=== PATIENT | male | born 1955 | race Caucasian/White ===

== ENCOUNTER → 2016-10-01 | Outpatient (CLI) | payer BC ==
[~2016-10-01] MED LIST: ALBUAER19 INH; ASPCH81X PO; COEN100C7 PO; CYCL10TA6 PO; DICL-201 PO; FLUV100T2 PO; NAPR1TAB9 PO; VNTHFA/IN INH
[2016-10-01 12:27] LABS: BASO % 0.2 %; BASO ABS # 0.01 K/uL (0-0.2); COMPLETE YES; HEMATOCRIT 44.9 % (42-52); LYMPH % 35.3 %; LYMPH ABS # 2.11 K/uL (1.2-3.4); MEAN CELL VOLUME 91.3 fL (80-100); MEAN CORPUSCULAR HEMOGLOBIN 31.3 pg (25-34); MEAN CORPUSCULAR HGB CONC 34.3 g/dl (32-36); MEAN PLATELET VOLUME 10.9 fL (7.4-10.4); NEUT % 53.5 %; PLATELET COUNT 225 K/uL (130-400); RED BLOOD COUNT 4.92 M/uL (4.7-6.1); WHITE BLOOD COUNT 5.97 K/uL (4.8-10.8)
[2016-10-01 13:06] LABS: ALT/SGPT 18 U/L (12-78); AST/SGOT 16 U/L (15-37); BLOOD UREA NITROGEN 15 mg/dl (7-18); BUN/CREATININE RATIO 14.8 (10-20); CALCIUM 8.7 mg/dl (8.5-10.1); CARBON DIOXIDE 29 mmol/L (21-32); CHLORIDE 107 mmol/L (98-107); CREATININE 0.99 mg/dl (0.60-1.40); GLUCOSE 106 mg/dl (70-99); POTASSIUM 4.1 mmol/L (3.5-5.1); SODIUM 143 mmol/L (136-145); TRIGLYCERIDES 177 mg/dl (0-150); VERY LOW DENSITY LIPOPROT CALC 35 mg/dl
[2016-10-01 13:11] LABS: ALB/GLOB RATIO 1.4 (0.9-2); ALKALINE PHOSPHATASE 91 U/L (45-117); CHOLESTEROL 254 mg/dl (0-200); CHOLESTEROL/HDL RATIO 5.6; HDL CHOLESTEROL 45 mg/dl; LDL CHOLESTEROL CALCULATED 174 mg/dl; PROSTATE SPECIFIC ANTIGEN 0.973 ng/ml (0.000-4.000)
[2016-10-01 13:34] LABS: ESTIMATED AVERAGE GLUCOSE 126 mg/dl; HA1C FLAG Normal (Normal)
--- NOTE | 2016-10-06 10:12 | CODING QUERY MEDICAL NECESSITY ---
SUPPORTING DIAGNOSIS NEEDED Dr. Sharma, A supporting diagnosis is required for the test/procedure performed on this patient in order for us to be reimbursed by the patient's insurance. Please provide a supporting diagnosis for the following test/procedure listed below next to the test name along with your signature. *If there is no additional diagnosis for this patient that would support the following test/procedure please document that below next to the test/procedure. Test(s)/Procedure(s) that require a supporting diagnosis: * [id number] GLYCATED HEMOGLOBIN DIAGNOSIS: * [id number] PSA DIAGNOSIS: DATE OF SERVICE: 10/01/16 Provider Signature: Date: Thank you Agustin Ramos Health Information Management Once completed, please kindly fax back to [phone] For questions please call [phone]
== END | disposition home or self-care (01) ==
LOC: C.LABPBG 09:39
PROVIDERS: ATTEND Internal Medicine
DX: F42.9 Obsessive-compulsive disorder, unspecified (principal); R73.03 Prediabetes; Z12.5 Encounter for screening for malignant neoplasm of prostate

== ENCOUNTER → 2017-01-07 | Day surgery (SDC) | payer BC ==
[2016-12-08 12:40] VITALS: Ht 175.3 cm; Wt 93.2 kg
[~2017-01-07] VITALS: Ht 175.3 cm; Wt 93.2 kg
[~2017-01-07] MED LIST changes: -ASPCH81X PO; -COEN100C7 PO; +IOPAMIDOL INJ 61% 15 ML VIAL ONE; +LIDOCAINE HCL 1% MPF 5 ML VIAL ONE; +SODIUM CHLORIDE 0.9% INJ 10 ML VIAL ONE; -VNTHFA/IN INH
[2017-01-07 13:58] VITALS: TEMP 36.5
--- NOTE | 2017-01-07 14:53 | History & Physical Bridge - [place] ---
H&P Re-Evaluation Bridge Note: I have examined the patient, reviewed the History & Physical and in the interval since the performance of the History & Physical I have noted the following changes of clinical significance: No changes noted
--- NOTE | 2017-01-07 15:15 | Discharge Instructions ---
Discharge Instructions Date of Service Jan 07, 2017. Visit Reason for Visit: Lumbosacral Disc Displacement Discharge Discharge Diagnosis / Problem: leg pain Discharge Goals Goal(s): Decrease discomfort, Improve function Medications Stopped Medications Name(s): voltaren and aleve. last dose votaren thursday. last dose aleve thursday Activity Recommendations Activity Limitations: resume your previous activity Anesthesia . Post Anesthesia Instructions: If you have had General Anesthesia or IV Sedation: * Do not drive today. * Resume driving when surgeon permits. * Do not make important decisions or sign legal documents today. * Call surgeon for: 1. Temperature elevations greater than 101 degrees F. 2. Uncontrollable pain. 3. Excessive bleeding. 4. Persistent nausea and vomiting. 5. Medication intolerance (nausea, vomiting or rash). * For nausea and vomiting use only clear liquids such as: tea, soda, bouillon until nausea subsides, then gradually increase diet as tolerated. * If you have any concerns or questions, call your surgeon's office. If physician is unavailable and it is an emergency, call 911 or go to the nearest emergency room. . Diet Recommendations Recommended Home Diet: resume previous diet Procedures Procedures Performed: Lumbar Epidural Steroid Injection Pending Studies Studies pending at discharge: no Medical Emergencies . Who to Call and When: Medical Emergencies: If at any time you feel your situation is an emergency, please call 911 immediately. . Non-Emergent Contact Non-Emergency issues call your: Specialist . . "Provider Documentation" section prepared by Darinel Sal. .
[2017-01-07 15:19] VITALS: BP 116/74; PULSE 67; O2SAT 99
--- NOTE | 2017-01-07 16:10 | [facility] Operative Report ---
Operative Report Date of Service Jan 07, 2017. Operative Report DICTATED BY: Darinel Sal M.D. DATE OF SURGERY: 01/07/17. DATE OF OPERATION: 01/07/2017 PREOPERATIVE DIAGNOSIS: L5-S1 herniated nucleus pulposus with bilateral lower extremity radiculopathy. POSTOPERATIVE DIAGNOSIS: Same. PROCEDURE: Right paramedian L5-S1 intralaminar epidural steroid injection under fluoroscopic guidance. SURGEON: Dr. Darinel Sal. INDICATIONS: The patient is a 61-year-old white male who has received injections in the past with good effectiveness. His injection has worn off that was done a number of months ago and radicular pain is coming back despite the medications he is on. He presents today for an epidural to provide him with relief. PHYSICAL EXAMINATION: GENERAL: Pleasant male seated comfortably in no apparent distress. MUSCULOSKELETAL EXAMINATION: Lumbar paraspinal muscles were palpated. They were nontender. He had no sensitivity of the sciatic notch. He had normal lower extremity strength. Negative seated straight leg raises and had no difficulty with hip adduction. CONSENT: Verbal and written consent was obtained from the patient. Risks and benefits were reviewed. Risks include but are not limited to epidural abscess, epidural hematoma, allergic reaction, dural puncture. The patient wishes to proceed. PROCEDURE: The patient was taken back to the special procedures room of the [facility] where he was maintained in a prone position. Backside was cleansed with Betadine x3 and a dry sterile dressing was applied. Fluoroscope was used to identify the L5-S1 intralaminar space and overlying skin on the right side was anesthetized with 4 mL of lidocaine 1% with a 25 gauge 1.5-inch needle. A 22-gauge 3-1/2 inch Tuohy needle was then directed down towards the intralaminar space. It was advanced under lateral fluoroscopic guidance. Loss of resistance was noted at a depth of 6 cm. Isovue-300 contrast 1 mL was injected in which demonstrated epidural uptake pattern which was confirmed with both AP and lateral views. He then underwent injection after negative aspiration of 40 mg of Depo-Medrol and 4 mL of preservative free sodium chloride. Injection was well tolerated. DISPOSITION: 1. The patient is taken out into the discharge recovery area where he will be discharged home once discharge criteria have been met. 2. Follow up in the [facility] office in 2-4 weeks. I attest to the content of the Intraoperative Record and any orders documented therein. Any exceptions are noted below. D: T: <Electronically signed by Darinel Sal M.D.> S: 01/07/2017 ES Darinel Sal M.D. The status of this report is Signed. Draft = Not yet reviewed or approved by Medical Physician. Signed = Reviewed and approved by Medical Physician. I attest to the content of the Intraoperative Record and any orders documented therein. Any exceptions are noted below.
== END | disposition home or self-care (01) ==
LOC: X.SURG 13:51
PROVIDERS: ATTEND Physical Medicine & Rehabilitation
DX: M51.27 Other intervertebral disc displacement, lumbosacral region (principal); M54.16 Radiculopathy, lumbar region

== ENCOUNTER → 2017-02-25 | Outpatient (CLI) | payer BC ==
[~2017-02-25] MED LIST changes: -IOPAMIDOL INJ 61% 15 ML VIAL ONE; -LIDOCAINE HCL 1% MPF 5 ML VIAL ONE; -SODIUM CHLORIDE 0.9% INJ 10 ML VIAL ONE
--- NOTE | 2017-02-25 13:00 | DIAGNOSTIC IMAGING REPORT ---
RIGHT LOWER EXTREMITY VENOUS DOPPLER HISTORY: M79.606 Acute leg painI80.9 Phlebitis, superficial RT lower ext Right COMPARISON STUDY: None. FINDINGS: There is normal compressibility, flow, and augmentation within the right lower extremity deep venous system. The patient's area of pain within the right medial calf appears to correspond to a patent superficial vessel. IMPRESSION: No DVT within the right lower extremity Electronically signed by: Jaskaran Gusman M.D. 02/25/2017 12:59 PM Dictated Date/Time: 02/25/2017 12:58 PM
== END | disposition home or self-care (01) ==
LOC: C.ULTRBC 12:18
PROVIDERS: ATTEND Physician Assistant Medical
DX: I80.9 Phlebitis and thrombophlebitis of unspecified site (principal); M79.604 Pain in right leg

== ENCOUNTER → 2017-04-06 | Outpatient (CLI) | payer BC ==
[2017-04-06 11:59] LABS: CHOLESTEROL/HDL RATIO 5.4
[2017-04-06 12:33] LABS: ESTIMATED AVERAGE GLUCOSE 120 mg/dl; HA1C FLAG Normal (Normal)
== END | disposition home or self-care (01) ==
LOC: C.LABPBG 09:28
PROVIDERS: ATTEND Internal Medicine
DX: F42.9 Obsessive-compulsive disorder, unspecified (principal); R73.03 Prediabetes; E78.5 Hyperlipidemia, unspecified

== ENCOUNTER → 2017-05-13 | Day surgery (SDC) | payer BC ==
[2017-04-17 14:01] VITALS: Ht 170.2 cm; Wt 88.6 kg
[~2017-05-13] VITALS: Ht 170.2 cm; Wt 88.6 kg
[~2017-05-13] MED LIST changes: -ALBUAER19 INH; +ASPCH81X PO; +COEN100C7 PO; +IOPAMIDOL 15 ML IV ONE; +LIDOCAINE HCL 1% MPF 5 ML VIAL ONE; +SODIUM CHLORIDE 0.9% INJ 10 ML VIAL ONE; +VNTHFA/IN INH
[2017-05-13 15:29] VITALS: TEMP 37.5
--- NOTE | 2017-05-13 15:36 | Discharge Instructions ---
Discharge Instructions Date of Service May 13, 2017. Visit Reason for Visit: Lumbosacral Disc Displacement Discharge Discharge Diagnosis / Problem: left leg pain Discharge Goals Goal(s): Decrease discomfort, Improve function Medications Stopped Medications Name(s): Per pt stopped taking asa, diclofenac, luvox, and meloxicam as instructed on thursday. Activity Recommendations Activity Limitations: resume your previous activity Anesthesia . Post Anesthesia Instructions: If you have had General Anesthesia or IV Sedation: * Do not drive today. * Resume driving when surgeon permits. * Do not make important decisions or sign legal documents today. * Call surgeon for: 1. Temperature elevations greater than 101 degrees F. 2. Uncontrollable pain. 3. Excessive bleeding. 4. Persistent nausea and vomiting. 5. Medication intolerance (nausea, vomiting or rash). * For nausea and vomiting use only clear liquids such as: tea, soda, bouillon until nausea subsides, then gradually increase diet as tolerated. * If you have any concerns or questions, call your surgeon's office. If physician is unavailable and it is an emergency, call 911 or go to the nearest emergency room. . Diet Recommendations Recommended Home Diet: resume previous diet Procedures Procedures Performed: Lumbar Epidural Steroid Injection Pending Studies Studies pending at discharge: no Medical Emergencies . Who to Call and When: Medical Emergencies: If at any time you feel your situation is an emergency, please call 911 immediately. . Non-Emergent Contact Non-Emergency issues call your: Specialist . . "Provider Documentation" section prepared by Darinel Sal. .
[2017-05-13 15:39] VITALS: BP 124/79; PULSE 72; O2SAT 99
--- NOTE | 2017-05-13 15:48 | OPERATIVE REPORT ---
DATE OF OPERATION: 05/13/2017 PREOPERATIVE DIAGNOSIS: L5-S1 herniated nucleus pulposus with recurrent left lower extremity radiculopathy. POSTOPERATIVE DIAGNOSIS: Same. PROCEDURE: Left paramedian L5-S1 intralaminar epidural steroid injection under fluoroscopic guidance. SURGEON: Dr. Darinel Sal. INDICATIONS: The patient is a 62-year-old white male who has had good results from an epidural injection, last one in December. The effectiveness is wearing off and is more uncomfortable for him. He presents today for an epidural injection to provide him with relief of left lower extremity radiculopathy. PHYSICAL EXAMINATION: Pleasant male lying comfortably. He has mild sensitivity in his sciatic notch, worse with flexion. He has normal motor and sensory exam. He has a positive straight leg raise on the left lower extremity. CONSENT: Verbal and written consent was obtained from the patient. Risks and benefits were reviewed. Risks include but are not limited to abscess and allergic reaction. The patient wishes to proceed. PROCEDURE: The patient was taken back to special procedures room of the [facility] [address] where he was maintained in a prone position. Backside was cleansed with Betadine x3 and a dry sterile dressing was applied. Fluoroscope was used to identify the L5-S1 intralaminar space. Overlying skin on the left side was anesthetized with 4 mL of lidocaine 1% with a 25 gauge 1.5-inch needle. He then had a 22 gauge 3-1/2 inch Tuohy needle placed and was advanced under lateral fluoroscopic guidance. Loss of resistance was noted at a depth of 6.5 cm. Isovue-300 contrast 1 mL was injected in which demonstrated epidural uptake pattern. He then underwent injection after negative aspiration of 40 mg of Depo-Medrol and 4 mL of preservative free sodium chloride. Injection was well tolerated. DISPOSITION: 1. The patient is taken out into the discharge recovery area where he will be discharged home once discharge criteria have been met. 2. Follow up in the [facility] office in 2-4 weeks. I attest to the content of the Intraoperative Record and any orders documented therein. Any exception s are noted below.
== END | disposition home or self-care (01) ==
LOC: X.SURG 13:52
PROVIDERS: ATTEND Physical Medicine & Rehabilitation
DX: M51.17 Intervertebral disc disorders with radiculopathy, lumbosacral region (principal)

== ENCOUNTER 2022-02-03 02:10 | Inpatient (IN) ==
[2022-02-03] MEDS ORDERED: ASPIRIN CHEW 324 MG PO STA (02:35)
[2022-02-03] MEDS ORDERED: SODIUM CHLORIDE 0.9% 500 ML IV STA (02:35)
[2022-02-03] MEDS ORDERED: NITROGLYCERIN 2% OINTMENT 30GM TUBE EXT STA (02:35)
--- NOTE | 2022-02-03 02:39 | Emergency Department Note ---
History of Present Illness General Chief complaint: Chest Pain Stated complaint: CHEST PAIN,PAIN LFT ARM BEHIND,JAW PAIN Time Seen by Provider: 02/03/22 02:23 History of Present Illness Maximum Pain Intensity: 10 This is a 66-year-old male presenting to the emergency department for evaluation of left arm pain, left shoulder pain, left side chest pain, and radiation of pain into his left side jaw. The patient states the pain began less than 1 hour ago (about 1:30 am) while he was asleep in bed. He does have a history of coronary artery disease and dyslipidemia. The patient describes the pain in his chest as heavy, with the pain in his arm as sharp. He does not have any recent injuries or trauma. He has not taken anything [id number] for symptoms. He rates his pain a 10/10. There is a strong family history of cardiac disease. Home Medications Medication Instructions Recorded Confirmed Type diclofenac sodium 75 mg 75 mg PO BID 04/26/19 02/03/22 History tablet,delayed release acetaminophen 500 mg tablet 1,000 mg PO Q6H PRN Pain 01/25/21 02/03/22 History (Tylenol Extra Strength) fluvoxamine 100 mg tablet 100 mg PO BID #180 tabs 10/16/21 02/03/22 Rx prednisone 1 mg tablet 4 mg PO DAILY 02/03/22 02/03/22 History Allergies Allergy/AdvReac Type Severity Reaction Status Date / Time No Known Allergies Allergy Verified 02/03/22 02:38 Past Med/Surg History Medical History Anxiety Back pain, lumbosacral Carpal tunnel syndrome Chronic pain syndrome Claustrophobia Fibromyalgia History of COVID-19 07/01/20 [facility]; cough, sob, fever, fatigue, chills, sore throat, loss of taste/smell; reports all symptoms resolved aside from loss of taste/smell History of kidney stones Hyperlipidemia HX Left lumbar radiculopathy Lumbar disc prolapse with compression radiculopathy Lumbar spinal stenosis OCD (obsessive compulsive disorder) Panic anxiety syndrome Pre-diabetes Rheumatoid arthritis Surgical History History of colonoscopy History of surgical removal of ganglion cyst Hx of vasectomy S/P epidural steroid injection 01/2021 Family History Uncle Myocardial infarction Mother Coronary heart disease Other No family history of adverse response to anesthesia Denies family history of Ovarian cancer Prostate cancer Breast cancer Lung cancer Colorectal cancer Social History Smoking Status: Never smoker Second Hand Exposure: No; Do You Dip or Chew Tobacco: No; Tobacco Cessation Education Requested by Patient: No Hx Alcohol Use: Yes Alcohol type: wine Hx Substance Use: No Preferred Language: Romanian Communication Ability: Effective Visual Impairment: No Limitations Hearing Ability: Normal Records Associate Required: No Beliefs That Will Affect Care: None marital status: Current Living Situation: Spouse current occupational status: retired Other Information That Helps Us Care for You: No Feels Safe at Home: Yes Safety Concerns: Feels Safe At This Time Childhood Exposure to Second-Hand Smoke: No Diet Comment: regular caffeine: Yes during the past year weight has: remained stable Dental Care, Regularly: Yes Physical Activity Frequency: Daily Physical Activity Frequency Comment: States active at home Seatbelt Use: always Sunscreen Use: Yes Assistive Devices: Glasses Review of Systems A total of 10 systems reviewed and were otherwise negative Physical Exam Vital Signs Vital Signs - 24 hr 02/03/22 02:13 02/03/22 03:00 02/03/22 03:00 Temperature 36 C L Temperature Source Temporal Artery Scan Pulse Rate 69 Pulse Rate [Apical] 72 Pulse Rate [Finger] Pulse Rhythm Respiratory Rate 20 14 Respiratory Effort / Characteristics Non-Labored Spontaneous Non-Labored Spontaneous Respiratory Depth Normal Blood Pressure 148/90 H Blood Pressure [Left Arm] 145/102 H Blood Pressure Mean 109 Blood Pressure Mean [Left Arm] 116 Blood Pressure Position [Left Arm] Pulse Oximetry 96 95 95 Oxygen Delivery Method Room Air Room Air Room Air Sepsis Recent Fever Within 48 Hours No Sepsis New/Unexplained Change in Mental Status N/A Sepsis Action Taken by Nursing No Action Required 02/03/22 03:00 02/03/22 03:00 02/03/22 04:00 Temperature Temperature Source Pulse Rate 71 Pulse Rate [Apical] Pulse Rate [Finger] 76 Pulse Rhythm Regular Respiratory Rate 20 Respiratory Effort / Characteristics Respiratory Depth Blood Pressure 133/86 Blood Pressure [Left Arm] 145/102 H Blood Pressure Mean 101 Blood Pressure Mean [Left Arm] 116 Blood Pressure Position [Left Arm] Sitting Pulse Oximetry 95 95 95 Oxygen Delivery Method Room Air Room Air Sepsis Recent Fever Within 48 Hours Sepsis New/Unexplained Change in Mental Status Sepsis Action Taken by Nursing VITALS: Vitals are noted on the nurse's note and reviewed by myself. Vital signs stable. GENERAL: Well-developed, well-nourished, white male, who is moderately uncomfortable appearing. Patient is cooperative with the examination. HEAD: Normocephalic atraumatic. NECK: Supple without nuchal rigidity. No lymphadenopathy. No thyromegaly. Cervical spine is nontender. HEART: Regular rate and rhythm without murmurs gallops or rubs. LUNGS: Clear to auscultation bilaterally without wheezes, rales or rhonchi. No retractions or accessory muscle use. ABDOMEN: Positive normal bowel sounds x 4. Soft, nontender, without masses or organomegaly. No guarding or rebound tenderness. MUSCULOSKELETAL: No muscle atrophy, erythema, or edema noted. Full range of motion in all extremities. Course Administered Medications Heparin Sodium/Dextrose (Heparin Sodium/Dextrose) 25,000 units in 500 mls @ 28 mls/hr IV .[id number] [facility]; Protocol Stop: 03/05/22 04:14 Last Admin: 02/03/22 04:17 Dose: 1,400 units/hr, 28 mls/hr Documented By: ENDER Co-signed By: ISAI Discontinued Medications Aspirin (Aspirin Chew 324 Mg) 324 mg PO NOW STA Stop: 02/03/22 02:36 Last Admin: 02/03/22 02:42 Dose: 324 mg Documented By: ISAI Heparin Sodium (Porcine) (Heparin Sod (Porcine) 1000 Unit/Ml) 6,000 units IV NOW ONE Stop: 02/03/22 04:08 Last Admin: 02/03/22 04:16 Dose: 6,000 units Documented By: ENDER Co-signed By: ISAI Sodium Chloride (Nss) 500 mls @ 999 mls/hr IV .Q31M STA Stop: 02/03/22 03:05 Last Infusion: 02/03/22 03:16 Dose: 0 mls/hr Documented By: Admin: 02/03/22 02:46 Dose: 999 mls/hr Documented By: ISAI Metoprolol Tartrate (Metoprolol Tartrate 25 Mg Tab) 25 mg PO NOW STA Stop: 02/03/22 03:56 Last Admin: 02/03/22 04:15 Dose: 25 mg Documented By: ENDER Morphine Sulfate (Morphine Sulfate 4 Mg/Ml 1 Ml Carp\Vial) 4 mg IV Q30M PRN PRN Reason: Pain Stop: 02/17/22 03:02 Last Admin: 02/03/22 03:09 Dose: 4 mg Documented By: ENDER Nitroglycerin (Nitroglycerin 2% Ointment 30gm Tube) 1 inch EXT NOW STA Stop: 02/03/22 02:36 Last Admin: 02/03/22 02:42 Dose: 1 inch Documented By: ISAI Nitroglycerin (Nitroglycerin Sl 0.4 Mg/Tab Tab) 0.4 mg SL NOW STA Stop: 02/03/22 04:07 Last Admin: 02/03/22 04:14 Dose: 0.4 mg Documented By: ENDER Ondansetron HCl (Ondansetron Inj 2 Mg/Ml 2 Ml Vial) 4 mg IV NOW STA Stop: 02/03/22 03:13 Last Admin: 02/03/22 03:13 Dose: 4 mg Documented By: ENDER Ondansetron HCl (Ondansetron Inj 2 Mg/Ml 2 Ml Vial) Confirm Administered Dose 4 mg .ROUTE .STK-MED ONE Stop: 02/03/22 03:13 Last Admin: 02/03/22 03:13 Dose: Not Given Documented By: ENDER Medical Decision Making Differential Diagnosis Differential diagnosis includes, but is not limited to: Myocardial infarction, dysrhythmia, pericarditis, pneumothorax, aortic aneurysm/dissection, DVT/PE, anxiety, GERD, PUD, electrolyte imbalance, thyroid disorder, pneumonia, bronchitis, pancreatitis, and others Laboratory Data Result diagrams: 02/03/22 04:55 02/03/22 02:30 Lab Results 02/03/22 02/03/22 02/03/22 Range/Units 02:30 02:30 02:30 WBC 7.64 (4.8-10.8) K/ul RBC 4.64 (4.63-6.08) M/uL Hgb 14.6 (14.0-18.0) g/dl Hct 43.2 (40.1-51.0) % MCV 93.1 (80.0-100.0) fL MCH 31.5 (25.0-34.0) pg MCHC 33.8 (32.0-36.0) g/dL RDW Std Deviation 43.5 (36.4-46.3) fL RDW Coeff of Casey 12.7 (11.5-14.5) % Plt Count 193 (130-400) K/uL MPV 10.2 (9.4-12.4) fL Immature Gran % (Auto) 0.1 % Neut % (Auto) 50.9 % Lymph % (Auto) 37.4 % [place] % (Auto) 9.7 % Eos % (Auto) 1.6 % Baso % (Auto) 0.3 % Neut # (Auto) 3.89 (1.4-6.5) K/uL Lymph # (Auto) 2.86 (1.2-3.4) K/uL [place] # (Auto) 0.74 (0.24-0.82) K/uL Eos # (Auto) 0.12 (0-0.50) K/uL Baso # (Auto) 0.02 (0-0.2) K/uL Immature Gran # (Auto) 0.01 (0.00-0.02) K/uL PT 10.2 (9.0-12.0) Seconds INR 1.0 (0.9-1.1) APTT 24.1 (21.0-31.0) Seconds PTT Ratio 0.9 Sodium 140 (136-145) mmol/L Potassium 3.7 (3.5-5.1) mmol/L Chloride 104 (98-107) mmol/L Carbon Dioxide 27 (21-32) mmol/L Anion Gap 9 (3-11) BUN 21 (6-23) mg/dl Creatinine 0.94 (0.6-1.4) mg/dl Est Cr Clr Drug Dosing 84.8 ml/min Est GFR ( Amer) 97.5 ml/min Est GFR (Non-Af Amer) 84.2 ml/min BUN/Creatinine Ratio 22.3 H (10-20) Glucose 111 H (70-99(Fasting)) mg/dl Calcium 9.2 (8.5-10.1) mg/dl Total Bilirubin 0.4 (0.2-1.0) mg/dl AST 22 (13-39) U/L ALT 10 (7-52) U/L Alkaline Phosphatase 87 (34-104) U/L Troponin I High Sens 525.0 H* (0-20) pg/ml Total Protein 7.0 (6.0-8.3) gm/dl Albumin 4.5 (3.4-5.0) gm/dl Globulin 2.5 (2.5-4.0) gm/dl Albumin/Globulin Ratio 1.8 (0.9-2) Lipase 37 (11-82) U/L SARS-CoV-2, RNA, NAAT (NEGATIVE) 02/03/22 Range/Units 02:48 WBC (4.8-10.8) K/ul RBC (4.63-6.08) M/uL Hgb (14.0-18.0) g/dl Hct (40.1-51.0) % MCV (80.0-100.0) fL MCH (25.0-34.0) pg MCHC (32.0-36.0) g/dL RDW Std Deviation (36.4-46.3) fL RDW Coeff of Casey (11.5-14.5) % Plt Count (130-400) K/uL MPV (9.4-12.4) fL Immature Gran % (Auto) % Neut % (Auto) % Lymph % (Auto) % [place] % (Auto) % Eos % (Auto) % Baso % (Auto) % Neut # (Auto) (1.4-6.5) K/uL Lymph # (Auto) (1.2-3.4) K/uL [place] # (Auto) (0.24-0.82) K/uL Eos # (Auto) (0-0.50) K/uL Baso # (Auto) (0-0.2) K/uL Immature Gran # (Auto) (0.00-0.02) K/uL PT (9.0-12.0) Seconds INR (0.9-1.1) APTT (21.0-31.0) Seconds PTT Ratio Sodium (136-145) mmol/L Potassium (3.5-5.1) mmol/L Chloride (98-107) mmol/L Carbon Dioxide (21-32) mmol/L Anion Gap (3-11) BUN (6-23) mg/dl Creatinine (0.6-1.4) mg/dl Est Cr Clr Drug Dosing ml/min Est GFR ( Amer) ml/min Est GFR (Non-Af Amer) ml/min BUN/Creatinine Ratio (10-20) Glucose (70-99(Fasting)) mg/dl Calcium (8.5-10.1) mg/dl Total Bilirubin (0.2-1.0) mg/dl AST (13-39) U/L ALT (7-52) U/L Alkaline Phosphatase (34-104) U/L Troponin I High Sens (0-20) pg/ml Total Protein (6.0-8.3) gm/dl Albumin (3.4-5.0) gm/dl Globulin (2.5-4.0) gm/dl Albumin/Globulin Ratio (0.9-2) Lipase (11-82) U/L SARS-CoV-2, RNA, NAAT NEGATIVE (NEGATIVE) MDM Narrative Physical exam and history were performed. Nursing notes, EMR, and Medication List were personally reviewed. Patient appears to have chest pain symptoms bringing him to the ER. His description of the pain is quite concerning. EKG was performed and appears to show some ST depression in lead III and aVF compared to his previous EKG of December 2020. IV access was established and labs were obtained. Patient was gently hydrated with normal saline and given IV morphine, IV Zofran, aspirin p.o., as well as Nitropaste. Case was discussed with my attending. An order was placed for continuous cardiac monitoring. The monitor shows a rate of 77 with normal sinus rhythm. The patient's blood work is as above and was reviewed. He does not have a significantly elevated white blood cell count, gross anemia, bandemia, or significant electrolyte imbalance or lipase and transaminases are not diagnostic. COVID is negative. Patient's troponin is greater than 500. On reevaluation the patient did have some improvement of his pain from a 10/10 to a 7/10 with the morphine and other interventions. The patient case was discussed with the on-call hospitalist, Dr. Valerio, who did evaluate the patient here in the ER. Heparin drip will be started by the hospitalist team. Please see their dictation for further patient course, plan, and patient disposition. The chart was completed utilizing Dragon Speech Voice Recognition Software. Grammatical errors, random word insertions, pronoun errors, and incomplete sentences are an occasional consequence of this system due to software limitations, ambient noise, and hardware issues. Any formal questions or conc erns about the content, text, or information contained within the body of this dictation should be directly addressed to the provider for clarification. . Impression & Plan NSTEMI (non-ST elevated myocardial infarction) Discharge Plan Visit Data Chief Complaint: Chest Pain Stated Complaint: CHEST PAIN,PAIN LFT ARM BEHIND,JAW PAIN ED Provider: Annemarie Davies ED Midlevel Provider: Farhat Addison Discharge Problem: NSTEMI (non-ST elevated myocardial infarction) Patient Disposition: Admitted As Inpatient Discharge Instructions Interventions: ED Discharge Assessment Last Done: 02/03/22 05:00
[2022-02-03 02:42] LABS: Basophils # (auto) 0.02 K/uL (0-0.2); Basophils % (auto) 0.3 %; Eosinophils # (auto) 0.12 K/uL (0-0.50); Eosinophils % (auto) 1.6 %; Hematocrit (blood only) 43.2 % (40.1-51.0); Hemoglobin 14.6 g/dl (14.0-18.0); Immature Granulocytes # (auto) 0.01 K/uL (0.00-0.02); Immature Granulocytes % (auto) 0.1 %; Lymphocytes # (auto) 2.86 K/uL (1.2-3.4); Lymphocytes % (auto) 37.4 %; Mean Corpuscular Hemoglobin 31.5 pg (25.0-34.0); Mean Corpuscular Hgb Conc 33.8 g/dL (32.0-36.0); Mean Corpuscular Volume 93.1 fL (80.0-100.0); Mean Platelet Volume 10.2 fL (9.4-12.4); Monocytes # (auto) 0.74 K/uL (0.24-0.82); Monocytes % (auto) 9.7 %; Neutrophils # (auto) 3.89 K/uL (1.4-6.5); Neutrophils % (auto) 50.9 %; Platelet Count 193 K/uL (130-400); RDW Coefficient of Variation 12.7 % (11.5-14.5); RDW Standard Deviation 43.5 fL (36.4-46.3); Red Blood Count 4.64 M/uL (4.63-6.08); White Blood Count 7.64 K/ul (4.8-10.8)
[2022-02-03] MEDS ORDERED: MoRPHine SULFATE 4 MG/ML 1 ML CARP\\VIAL IV PRN (03:03)
[2022-02-03 03:06] LABS: Partial Thromboplastin Ratio 0.9; Partial Thromboplastin Time 24.1 Seconds (21.0-31.0); Prothrombin Time 10.2 Seconds (9.0-12.0)
[2022-02-03] MEDS ORDERED: ONDANSETRON INJ 2 MG/ML 2 ML VIAL IV STA (03:12)
[2022-02-03] MEDS ORDERED: ONDANSETRON INJ 2 MG/ML 2 ML VIAL ONE (03:12)
[2022-02-03 03:30] LABS: Albumin Globulin Ratio 1.8 (0.9-2); Albumin Level 4.5 gm/dl (3.4-5.0); BUN Creatinine Ratio 22.3 (10-20); Bilirubin,Total 0.4 mg/dl (0.2-1.0); Calcium 9.2 mg/dl (8.5-10.1); Creatinine Clr Calc Pharmacy 84.8 ml/min; Est GFR (African American) 97.5 ml/min; Est GFR (Non-African American) 84.2 ml/min; Globulin 2.5 gm/dl (2.5-4.0); Potassium 3.7 mmol/L (3.5-5.1)
--- NOTE | 2022-02-03 03:42 | History & Physical Report ---
Date of Service February 03, 2022 Assessment & Plan (1) NSTEMI (non-ST elevated myocardial infarction): Plan: 66yo male with a history of HLD, CAD, MADISON, MDD, polymyalgia rheumatica, and impaired fasting glucose presents with a few-hour history of left chest pain, left arm pain, left shoulder pain, and left jaw pain suspected secondary to NSTEMI. NSTEMI, CAD, HLD On admission, EKG notable for mild ST depressions in V3 and aVF Initial hsTroponin elevated to 525, repeat pending In the ED, patient received ASA 324mg, nitroglycerin (1 inch x1), NSS 500mL bolus (x1), morphine IV 4mg (x1), and zofran IV 4mg (x1); pain improved to 7/10 Started heparin gtt, ordered additional nitro, and additional morphine if pain does not resolve with additional nitro Ordered metoprolol PO 25mg (x1) Cardiology consulted, anticipate catheterization later today NPO pending possible procedure MADISON, MDD: continue home fluvoxamine once patient is no longer NPO Impaired fasting glucose: HbA1c ordered Polymyalgia rheumatica: continue home prednisone once patient is no longer NPO FEN: NPO Code status: DNI DVT ppx: heparin gtt Consults: cardiology Dispo: PCU (2) Coronary artery calcification seen on computed tomography: (3) Hyperlipidemia: (4) Polymyalgia rheumatica: (5) Pre-diabetes: (6) Anxiety: (7) COVID-19 virus infection: History of Present Illness Primary Care Provider: Murtaza Sharma MD 66yo male with a history of HTN, HLD, CAD, MADISON, MDD, polymyalgia rheumatica, and impaired fasting glucose presents with a few-hour history of left chest pain, left arm pain, left shoulder pain, and left jaw pain. The pain awoke patient from sleep. Denies recent injury or trauma. Patient reports the pain quickly pastor to 10/10 in severity. Also notes associated mild nausea. Patient reports a family history of cardiac conditions (mother, maternal uncles) but denies any personal history of ME or chest pain. Patient denies fever, chills, headache, vision changes, palpitations, SOB, edema, abdominal pain, vomiting, dysuria, hematochezia, melena, dizziness, numbness, tingling, or other symptoms. Denies recent illness. Upon arrival, vitals were notable for mildly elevated BP (140s/100s). No tachycardia or tachypnea, patient afebrile, spO2 adequate on room air. Initial labs were notable for elevated hsTroponin to 525. EKG was notable for mild ST depression in V3 and aVF. In the ED, patient was given ASA 324mg, nitroglycerin (1 inch x1), NSS 500mL bolus (x1), morphine IV 4mg (x1), and zofran IV 4mg (x1). Surrogate decision-maker in case of an emergency: Ml (cell: [phone]) Allergies Allergy/AdvReac Type Severity Reaction Status Date / Time No Known Allergies Allergy Verified 02/03/22 02:38 Home Medications Medication Instructions Recorded Confirmed Type diclofenac sodium 75 mg 75 mg PO BID 04/26/19 02/03/22 History tablet,delayed release acetaminophen 500 mg tablet 1,000 mg PO Q6H PRN Pain 01/25/21 02/03/22 History (Tylenol Extra Strength) fluvoxamine 100 mg tablet 100 mg PO BID #180 tabs 10/16/21 02/03/22 Rx prednisone 1 mg tablet 4 mg PO DAILY 02/03/22 02/03/22 History Past Med/Surg History Medical History Anxiety Back pain, lumbosacral Carpal tunnel syndrome Chronic pain syndrome Claustrophobia Fibromyalgia History of COVID-19 07/01/20 [facility]; cough, sob, fever, fatigue, chills, sore throat, loss of taste/smell; reports all symptoms resolved aside from loss of taste/smell History of kidney stones Hyperlipidemia HX Left lumbar radiculopathy Lumbar disc prolapse with compression radiculopathy Lumbar spinal stenosis OCD (obsessive compulsive disorder) Panic anxiety syndrome Pre-diabetes Rheumatoid arthritis Surgical History History of colonoscopy History of surgical removal of ganglion cyst Hx of vasectomy S/P epidural steroid injection 01/2021 Family History Uncle Myocardial infarction Mother Coronary heart disease Other No family history of adverse response to anesthesia Denies family history of Ovarian cancer Prostate cancer Breast cancer Lung cancer Colorectal cancer Social History Smoking Status: Never smoker Second Hand Exposure: No; Do You Dip or Chew Tobacco: No; Tobacco Cessation Education Requested by Patient: No Hx Alcohol Use: Yes Alcohol type: wine Hx Substance Use: No Preferred Language: Jordanian Communication Ability: Effective Visual Impairment: No Limitations Hearing Ability: Normal Pan Dumper Required: No Beliefs That Will Affect Care: None marital status: Current Living Situation: Spouse current occupational status: retired Other Information That Helps Us Care for You: No Feels Safe at Home: Yes Safety Concerns: Feels Safe At This Time Childhood Exposure to Second-Hand Smoke: No Diet Comment: regular caffeine: Yes during the past year weight has: remained stable Dental Care, Regularly: Yes Physical Activity Frequency: Daily Physical Activity Frequency Comment: States active at home Seatbelt Use: always Sunscreen Use: Yes Assistive Devices: Glasses Physical Exam Physical Exam: Constitutional: well-appearing, no acute distress HEENT: NCAT, no conjunctival injection CV: regular rhythm, no murmur appreciated, extremities well-perfused, no LE edema Resp: CTABL, no wheezes/rales/rhonchi appreciated, no increased work of breathing GI: soft, nondistended, nontender, BS normoactive MSK: no gross deformities appreciated Skin: warm, dry, no rash appreciated Neuro: alert, oriented, no focal neurologic deficit appreciated Results & Data Results & Data ([facility]) Vital Signs (Past 12 Hours) Vital Signs Temp Pulse Pulse Pulse Resp BP BP 02/03/22 03:00 76 20 145/102 H 02/03/22 03:00 71 02/03/22 03:00 72 14 145/102 H 02/03/22 03:00 02/03/22 02:13 36 C L 69 20 148/90 H Pulse Ox O2 Del Method 02/03/22 03:00 95 02/03/22 03:00 95 Room Air 02/03/22 03:00 95 Room Air 02/03/22 03:00 95 Room Air 02/03/22 02:13 96 Room Air Supervising Physician Co-Signing Physician Notes Attending addendum: I have physically seen this patient, have supervised the medical residents activities, and agree with the H&P unless as otherwise noted. Assessment and Plan: NSTEMI- The patient will be admitted to telemetry for serial cardiac enzymes, serial EKG's, cardiac rhythm monitoring and a 2-D echocardiogram with Dopplers. ST depressions in inferior leads Initial troponin 525.0 with 2-hour pending The ED has given Nitropaste 1 inch anterior chest wall, NSS 500 mL bolus, aspirin 324 mg and Zofran 4 mg IV Add metoprolol tartrate 25 mg p.o. twice daily, start heparin drip standard concentration with bolus, Nitropaste 1 inch anterior chest wall every 6 hours Start Lipitor 80 mg daily now Check a fasting lipid panel and hemoglobin A1c Interventional cardiology Dr. Cordoba to be consulted Polymyalgia rheumatica- On prednisone 4 mg daily May need to give stress dose 10 mg daily for few days Resident Activity Tracking Resident Involvement: Resident Care Provided and Loss Prevention Leader Coverage Note Care Provided: Adult Hospital Medicine (1) Hyperlipidemia Hyperlipidemia type: pure hypercholesterolemia Qualified Code(s): E78.00 - Pure hypercholesterolemia, unspecified; E78.0 - Pure hypercholesterolemia
[2022-02-03] MEDS ORDERED: Heparin IV Adult Wt-Based Standard WITH Bolus Protocol IV SCH (03:54)
[2022-02-03] MEDS ORDERED: METOPROLOL TARTRATE 25 MG TAB PO STA (03:55)
[2022-02-03] MEDS ORDERED: NITROGLYCERIN SL 0.4 MG/TAB TAB SL STA (04:06)
[2022-02-03] MEDS ORDERED: HEPARIN SOD (PORCINE) 1000 UNIT/ML IV ONE (04:07)
[2022-02-03] MEDS ORDERED: HEPARIN SODIUM/DEXTROSE 25,000 UNITS/500 ML BAG IV SCH (04:15)
[2022-02-03 05:07] LABS: Basophils # (auto) 0.03 K/uL (0-0.2); Basophils % (auto) 0.4 %; Eosinophils # (auto) 0.16 K/uL (0-0.50); Hematocrit (blood only) 41.4 % (40.1-51.0); Hemoglobin 13.7 g/dl (14.0-18.0); Immature Granulocytes # (auto) 0.03 K/uL (0.00-0.02); Immature Granulocytes % (auto) 0.4 %; Lymphocytes # (auto) 2.16 K/uL (1.2-3.4); Lymphocytes % (auto) 26.4 %; Mean Corpuscular Hemoglobin 31.2 pg (25.0-34.0); Mean Corpuscular Hgb Conc 33.1 g/dL (32.0-36.0); Mean Corpuscular Volume 94.3 fL (80.0-100.0); Mean Platelet Volume 10.3 fL (9.4-12.4); Monocytes # (auto) 0.72 K/uL (0.24-0.82); Monocytes % (auto) 8.8 %; Neutrophils # (auto) 5.09 K/uL (1.4-6.5); Platelet Count 176 K/uL (130-400); RDW Coefficient of Variation 12.5 % (11.5-14.5); RDW Standard Deviation 43.7 fL (36.4-46.3); Red Blood Count 4.39 M/uL (4.63-6.08); White Blood Count 8.19 K/ul (4.8-10.8)
[2022-02-03] MEDS ORDERED: MoRPHine SULFATE 2 MG/ML CARP IV PRN (05:28)
[2022-02-03] MEDS ORDERED: ONDANSETRON INJ 2 MG/ML 2 ML VIAL IV PRN (05:28)
[2022-02-03] MEDS ORDERED: MELATONIN 3 MG TAB PO PRN (05:28)
--- NOTE | 2022-02-03 05:54 | Billing Data ---
Date of Service February 03, 2022 Coding Level of Care Code 74375 Initial Inpt Care Lvl 3
[2022-02-03] MEDS ORDERED: ATORVASTATIN 40 MG TAB PO ONE (05:59)
--- NOTE | 2022-02-03 08:08 | History & Physical Report ---
Date of Service February 03, 2022 Assessment & Plan (1) NSTEMI (non-ST elevated myocardial infarction): Plan: 66yo male with a history of HLD, CAD, MADISON, MDD, polymyalgia rheumatica, and impaired fasting glucose presents with a few-hour history of left chest pain, left arm pain, left shoulder pain, and left jaw pain suspected secondary to NSTEMI. NSTEMI, CAD, HLD On admission, EKG notable for mild ST depressions in V3 and aVF Initial hsTroponin elevated to 525, repeat downtrending In the ED, patient received ASA 324mg, nitroglycerin (1 inch x1), NSS 500mL bolus (x1), morphine IV 4mg (x1), and zofran IV 4mg (x1); pain improved to 7/10 Started heparin gtt, Nitropaste every 6 hours, and additional morphine as needed Ordered metoprolol PO 25mg (x1) Cardiology consulted, anticipate catheterization later today NPO pending possible procedure MADISON, MDD: continue home fluvoxamine once patient is no longer NPO Impaired fasting glucose: HbA1c ordered Polymyalgia rheumatica: continue home prednisone once patient is no longer NPO FEN: NPO Code status: DNI DVT ppx: heparin gtt Consults: cardiology Dispo: PCU (2) Coronary artery calcification seen on computed tomography: (3) Hyperlipidemia: (4) Polymyalgia rheumatica: (5) Pre-diabetes: (6) Anxiety: (7) COVID-19 virus infection: Admission and Anticipated Discharge Date Admission Date: February 03, 2022 History of Present Illness Primary Care Provider: Murtaza Sharma MD Allergies Allergy/AdvReac Type Severity Reaction Status Date / Time No Known Allergies Allergy Verified 02/03/22 02:38 Home Medications Medication Instructions Recorded Confirmed Type diclofenac sodium 75 mg 75 mg PO BID 04/26/19 02/03/22 History tablet,delayed release acetaminophen 500 mg tablet 1,000 mg PO Q6H PRN Pain 01/25/21 02/03/22 History (Tylenol Extra Strength) fluvoxamine 100 mg tablet 100 mg PO BID #180 tabs 10/16/21 02/03/22 Rx prednisone 1 mg tablet 4 mg PO DAILY 02/03/22 02/03/22 History Past Med/Surg History Medical History Anxiety Back pain, lumbosacral Carpal tunnel syndrome Chronic pain syndrome Claustrophobia Fibromyalgia History of COVID-19 07/01/20 [facility]; cough, sob, fever, fatigue, chills, sore throat, loss of taste/smell; reports all symptoms resolved aside from loss of taste/smell History of kidney stones Hyperlipidemia HX Left lumbar radiculopathy Lumbar disc prolapse with compression radiculopathy Lumbar spinal stenosis OCD (obsessive compulsive disorder) Panic anxiety syndrome Pre-diabetes Rheumatoid arthritis Surgical History History of colonoscopy History of surgical removal of ganglion cyst Hx of vasectomy S/P epidural steroid injection 01/2021 Family History Uncle Myocardial infarction Mother Coronary heart disease Other No family history of adverse response to anesthesia Denies family history of Ovarian cancer Prostate cancer Breast cancer Lung cancer Colorectal cancer Social History Smoking Status: Never smoker Second Hand Exposure: No; Do You Dip or Chew Tobacco: No; Tobacco Cessation Education Requested by Patient: No Hx Alcohol Use: Yes Alcohol type: wine Hx Substance Use: No Preferred Language: Citizen [place] Communication Ability: Effective Visual Impairment: No Limitations Hearing Ability: Normal Maintenance Mechanic Elevators Required: No Beliefs That Will Affect Care: None marital status: Current Living Situation: Spouse current occupational status: retired Other Information That Helps Us Care for You: No Feels Safe at Home: Yes Safety Concerns: Feels Safe At This Time Childhood Exposure to Second-Hand Smoke: No Diet Comment: regular caffeine: Yes during the past year weight has: remained stable Dental Care, Regularly: Yes Physical Activity Frequency: Daily Physical Activity Frequency Comment: States active at home Seatbelt Use: always Sunscreen Use: Yes Assistive Devices: Glasses Results & Data Results & Data ([facility]) Vital Signs (Past 12 Hours) Vital Signs Temp Pulse Pulse Pulse Resp BP BP 02/03/22 07:08 36.6 C 70 18 112/70 02/03/22 05:32 36.8 C 67 16 118/74 02/03/22 05:32 02/03/22 05:02 62 16 107/69 02/03/22 04:30 75 20 135/83 02/03/22 04:00 133/86 02/03/22 03:00 76 20 145/102 H 02/03/22 03:00 71 02/03/22 03:00 72 14 145/102 H 02/03/22 03:00 02/03/22 02:13 36 C L 69 20 148/90 H Pulse Ox O2 Del Method 02/03/22 07:08 97 Room Air 02/03/22 05:32 98 Room Air 02/03/22 05:32 Room Air 02/03/22 05:02 96 Room Air 02/03/22 04:30 95 Room Air 02/03/22 04:00 95 Room Air 02/03/22 03:00 95 02/03/22 03:00 95 Room Air 02/03/22 03:00 95 Room Air 02/03/22 03:00 95 Room Air 02/03/22 02:13 96 Room Air Code Status & VTE Plan VTE Prophylaxis Plan VTE Prophylaxis will be ordered: Yes PG Care Time/CCT Total # of Minutes Spent Total Time Spent with Patient: Total time spent is greater than 50% in coordination of care (as documented) at patient's floor/unit and/or counseling patient: Coding Diagnoses NSTEMI (non-ST elevated myocardial infarction) I21.4 Coronary artery calcification seen on computed tomography I25.10 Hyperlipidemia E78.00; E78.0 Hyperlipidemia type: pure hypercholesterolemia Polymyalgia rheumatica M35.3 Pre-diabetes R73.03 Anxiety F41.9 COVID-19 virus infection U07.1 (1) Hyperlipidemia Hyperlipidemia type: pure hypercholesterolemia Qualified Code(s): E78.00 - Pure hypercholesterolemia, unspecified; E78.0 - Pure hypercholesterolemia
--- NOTE | 2022-02-03 08:17 | XRay Report ---
XR chest 1V portable CLINICAL HISTORY: Chest Pain TECHNIQUE: Single frontal radiograph of the chest was obtained. Comparison: Comparison is made to chest radiograph 01/25/2021 FINDINGS: No lines and tubes are seen. The cardiomediastinal silhouette is normal. The lungs are clear. No evid ence of pleural effusion or pneumothorax. IMPRESSION: No acute chest disease. ACT 112: Negative or not required by law. Electronically signed by: Tarun So M.D. 02/03/2022 8:15 AM
[2022-02-03] MEDS: NITROGLYCERIN 2% OINTMENT 30GM TUBE EXT SCH ×2 (08:26→15:13)
[2022-02-03] MEDS ORDERED: predniSONE 1 MG TAB PO SCH (09:00)
--- NOTE | 2022-02-03 11:02 | Cardiology Consultation ---
Date of Consultation February 03, 2022 Assessment & Plan (1) NSTEMI (non-ST elevated myocardial infarction): 2. CardiomyopathyEF 45% with inferolateral wall motion abnormality 3. PMRon chronic steroids Presentation consistent with ACS. Recommend additional risk stratification with cardiac catheterization. Discussed procedure including risk, benefits with patient and he is willing to proceed. Currently chest pain-free, hemodynamically and electrically stable. Tentatively plan on procedure around 1230. Please keep n.p.o. Continue heparin infusion until called for procedure. Nitropatch in place. Received aspirin, statin, metoprolol this morning. Further recommendations pending findings of coronary angiography. History of Present Illness Attending Physician: Murtaza Rai MD History of Present Illness Mr. Rueda is a very pleasant 66-year-old man seen today due to NSTEMI. No prior cardiac history. Past medical history includes: PMR on chronic prednisone Degenerative disc disease/lumbar radiculopathy post injections Osteoarthritis Anxiety Approximately 1 AM this morning was awoken with left shoulder pain which radiated down his arm up into his neck and across his chest to his right arm. Pain associated with nausea, diaphoresis. Denies similar symptoms in the past. No recent change in exercise tolerance although states felt generally fatigued/unwell 2 days ago. Presented to ED around 3 AM, hypertensive to 140s over 100s. Continued to have active chest pain until approximately 9 AM today. Chest pain-free after topical nitrates, heparin. Initial ECG showed sinus rhythm with inferior ST depressions. ST depressions improved on subsequent ECG. Initial troponin elevated >500, next 450. Telemetry sinus rhythm in the 60s. Echo this morning showed inferolateral wall motion abnormality. Family history: Multiple maternal uncles with premature CAD in 30s/40s. Mother had heart issues but no history of CAD Social history: , 2 children, son 18 about to start college at [employer]. Patient is a non-smoker. Denies heavy alcohol. 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 Allergies Allergy/AdvReac Type Severity Reaction Status Date / Time No Known Allergies Allergy Verified 02/03/22 02:38 Home Medications Medication Instructions Recorded Confirmed Type diclofenac sodium 75 mg 75 mg PO BID 04/26/19 02/03/22 History tablet,delayed release acetaminophen 500 mg tablet 1,000 mg PO Q6H PRN Pain 01/25/21 02/03/22 History (Tylenol Extra Strength) fluvoxamine 100 mg tablet 100 mg PO BID #180 tabs 10/16/21 02/03/22 Rx prednisone 1 mg tablet 4 mg PO DAILY 02/03/22 02/03/22 History Patient History Medical History Anxiety Back pain, lumbosacral Carpal tunnel syndrome Chronic pain syndrome Claustrophobia Fibromyalgia History of COVID-19 07/01/20 [facility]; cough, sob, fever, fatigue, chills, sore throat, loss of taste/smell; reports all symptoms resolved aside from loss of taste/smell History of kidney stones Hyperlipidemia HX Left lumbar radiculopathy Lumbar disc prolapse with compression radiculopathy Lumbar spinal stenosis OCD (obsessive compulsive disorder) Panic anxiety syndrome Pre-diabetes Rheumatoid arthritis Surgical History History of colonoscopy History of surgical removal of ganglion cyst Hx of vasectomy S/P epidural steroid injection 01/2021 Family History Uncle Myocardial infarction Mother Coronary heart disease Other No family history of adverse response to anesthesia Denies family history of Ovarian cancer Prostate cancer Breast cancer Lung cancer Colorectal cancer Social History Smoking Status: Never smoker Second Hand Exposure: No; Do You Dip or Chew Tobacco: No; Tobacco Cessation Education Requested by Patient: No Hx Alcohol Use: Yes Alcohol type: wine Hx Substance Use: No Preferred Language: German Communication Ability: Effective Visual Impairment: No Limitations Hearing Ability: Normal Notary Public Required: No Beliefs That Will Affect Care: None marital status: Current Living Situation: Spouse current occupational status: retired Other Information That Helps Us Care for You: No Feels Safe at Home: Yes Safety Concerns: Feels Safe At This Time Childhood Exposure to Second-Hand Smoke: No Diet Comment: regular caffeine: Yes during the past year weight has: remained stable Dental Care, Regularly: Yes Physical Activity Frequency: Daily Physical Activity Frequency Comment: States active at home Seatbelt Use: always Sunscreen Use: Yes Assistive Devices: Glasses Physical Exam Physical Exam: General: Comfortable HEENT: Sclerae anicteric Lungs: Clear to auscultation bilaterally, no crackles or wheezes Cardiac: Regular rate and rhythm, no murmurs. JVP approximately 9 Vascular: 2+ radial, DP pulses. No bruits Abdomen: Soft, nontender Extremities: Well perfused, no peripheral edema. Bilateral telangiectasias/reti cular veins Neuro: Nonfocal Psych: Alert orient x3, normal affect and mood Results & Data ([facility]) Vital Signs (Past 12 Hours) Vital Signs Temp Pulse Pulse Pulse Resp BP BP 02/03/22 07:08 97.9 F 70 18 112/70 02/03/22 05:32 98.2 F 67 16 118/74 02/03/22 05:32 02/03/22 05:02 62 16 107/69 02/03/22 04:30 75 20 135/83 02/03/22 04:00 133/86 02/03/22 03:00 76 20 145/102 H 02/03/22 03:00 71 02/03/22 03:00 72 14 145/102 H 02/03/22 03:00 02/03/22 02:13 96.8 F L 69 20 148/90 H Pulse Ox O2 Del Method 02/03/22 07:08 97 Room Air 02/03/22 05:32 98 Room Air 02/03/22 05:32 Room Air 02/03/22 05:02 96 Room Air 02/03/22 04:30 95 Room Air 02/03/22 04:00 95 Room Air 02/03/22 03:00 95 02/03/22 03:00 95 Room Air 02/03/22 03:00 95 Room Air 02/03/22 03:00 95 Room Air 02/03/22 02:13 96 Room Air PG Care Time/CCT Total # of Minutes Spent Total Time Spent with Patient: Total time spent is greater than 50% in coordination of care (as documented) at patient's floor/unit and/or counseling patient: Coding Level of Care Code 28741 Inpt Consult Level 4 Diagnoses NSTEMI (non-ST elevated myocardial infarction) I21.4
--- NOTE | 2022-02-03 11:26 | Pre Anesthesia Assessment ---
Date of Service February 03, 2022 Pre Sedation Assessment Vital Signs Temp Pulse Pulse Pulse Resp BP BP 02/03/22 07:08 97.9 F 70 18 112/70 02/03/22 05:32 98.2 F 67 16 118/74 02/03/22 05:32 02/03/22 05:02 62 16 107/69 02/03/22 04:30 75 20 135/83 02/03/22 04:00 133/86 02/03/22 03:00 76 20 145/102 H 02/03/22 03:00 71 02/03/22 03:00 72 14 145/102 H 02/03/22 03:00 02/03/22 02:13 96.8 F L 69 20 148/90 H Pulse Ox O2 Del Method 02/03/22 07:08 97 Room Air 02/03/22 05:32 98 Room Air 02/03/22 05:32 Room Air 02/03/22 05:02 96 Room Air 02/03/22 04:30 95 Room Air 02/03/22 04:00 95 Room Air 02/03/22 03:00 95 02/03/22 03:00 95 Room Air 02/03/22 03:00 95 Room Air 02/03/22 03:00 95 Room Air 02/03/22 02:13 96 Room Air Cardiovascular RRR, no murmur, no edema Respiratory normal respiratory effort, lungs clear to auscultation Pre-Sedation Airway Assessment Smoking Status: Never smoker Hx Sleep Apnea: No Hx Difficult Intubation: No Short, Thick Neck: No Thyromental Distance: > or= 3.5 Finger Breadths Mallampati Class: III ASA: ASA3 Procedure Planning Contraindications for Sedation: none Current Medications Reviewed: Yes Notes The planned sedation has been discussed with the patient. Informed Consent was obtained. I have identified the patient, determined the appropriateness of sedation and have assessed the patient immediately prior to the procedure. All medicine(s) and interventions are by my order.
[2022-02-03 11:54] LABS: Partial Thromboplastin Ratio 2.6
[2022-02-03 12:05] LABS: Partial Thromboplastin Time 71.3 Seconds (21.0-31.0)
[2022-02-03] MEDS ORDERED: niCARdipine HCL INJ 2.5 MG/ML 10 ML AMP ONE (12:48)
[2022-02-03] MEDS ORDERED: HEPARIN (PORCINE) 1000 UNIT/ML 10 ML (CATH LAB USE ONLY) ONE (12:48)
[2022-02-03] MEDS ORDERED: NITROGLYCERIN/D5W 100MCG/ML 20ML SYR ONE (12:49)
[2022-02-03] MEDS ORDERED: fentaNYL citrate 100 MCG/2 ML VIAL ONE (12:49)
[2022-02-03] MEDS ORDERED: MIDAZOLAM HCL 1 MG/ML 2ML VIAL ONE ×2 (12:49→13:14)
[2022-02-03] MEDS ORDERED: CLOPIDOGREL BISULFATE 300 MG TAB ONE (14:04)
--- NOTE | 2022-02-03 14:10 | Hospitalist Progress Note ---
Date of Service February 03, 2022 Assessment & Plan (1) NSTEMI (non-ST elevated myocardial infarction): Plan: NSTEMI (non-ST elevated myocardial infarction): - 66yo male with a history of HLD, CAD, MADISON, MDD, polymyalgia rheumatica, and impaired fasting glucose presents with a few-hour history of left chest pain, left arm pain, left shoulder pain, and left jaw pain suspected secondary to NSTEMI. NSTEMI, CAD Patient with initial troponin high-sensitivity 525 --> 457 On admission received aspirin, metoprolol, nitro, fluids, morphine, Zofran with pain reduction to 7/10 Did have additional pain overnight and this morning around 3/10 which improved to a 1 out of 10 but did not resolve. Additional morphine/nitro was ordered/pending, patient did have resolution of pain~ 845 AM Echo final report pending, per cardiology review with inferior lateral wall motion abnormalities. Cardiology consulted, cath today pending Heparin GTT continued Beta-jamia, HARLEEN, DAPT recommendations pending catheterization N.p.o. pending cath Hemoglobin A1c 5.9% HLD: - Lipids 08/20 with LDL 95, cholesterol 186 Lipid panel pending Continue atorvastatin 80 mg MADISON, MDD: continue home fluvoxamine once patient is no longer NPO Impaired fasting glucose: A1c 5.9% Polymyalgia rheumatica: continue home prednisone once patient is no longer NPO FEN: NPO Code status: Conditional code, no intubation DVT ppx: heparin gtt Consults: cardiology Dispo: PCU (2) Coronary artery calcification seen on computed tomography: (3) Hyperlipidemia: (4) Polymyalgia rheumatica: (5) Pre-diabetes: (6) Anxiety: (7) COVID-19 virus infection: Admission and Anticipated Discharge Date Admission Date: February 03, 2022 Subjective Sebastian is seen the bedside in the morning. By report that had 3/10 chest pain overnight which initially improved but did not resolve with nitro. Received 1 mg of morphine and nitro patch exchange this morning with duction and eventual resolution of pain at time of morning reassessment. Following on reassessment for additional nitro/morphine patient had had resolution of pain. Is pending a cardiac catheterization. He denies shortness of breath, difficulty breathing, lightheadedness, fever, chills, sweats, syncope, presyncope. Cardiology notified the patient was still having residual pain, pending catheterization. Is heparinized at this time. Review of Systems Review of Systems: All systems reviewed & are unremarkable except as noted in Subjective Physical Exam Physical Exam: General: A&Ox3. NAD. Cooperative. HEENT: Atraumatic, normocephalic. Pulm: CTAB A&P. -wheezes, -rales, -rhonchi. Symmetrical chest rise. No increase in work of breathing. No respiratory distress. Cardiac: RRR, -mrg. Radial pulses intact and symmetrical. Abdominal: Nontender, nondistended, soft. BS present. Results & Data Results & Data ([facility]) Vital Signs (Past 12 Hours) Vital Signs Temp Pulse Pulse Pulse Resp BP BP 02/03/22 11:57 61 02/03/22 11:27 36.9 C 65 16 111/65 02/03/22 07:08 36.6 C 70 18 112/70 02/03/22 05:32 36.8 C 67 16 118/74 02/03/22 05:32 02/03/22 05:02 62 16 107/69 02/03/22 04:30 75 20 135/83 02/03/22 04:00 133/86 02/03/22 03:00 76 20 145/102 H 02/03/22 03:00 71 02/03/22 03:00 72 14 145/102 H 02/03/22 03:00 02/03/22 02:13 36 C L 69 20 148/90 H Pulse Ox O2 Del Method 02/03/22 11:57 02/03/22 11:27 91 Room Air 02/03/22 07:08 97 Room Air 02/03/22 05:32 98 Room Air 02/03/22 05:32 Room Air 02/03/22 05:02 96 Room Air 02/03/22 04:30 95 Room Air 02/03/22 04:00 95 Room Air 02/03/22 03:00 95 02/03/22 03:00 95 Room Air 02/03/22 03:00 95 Room Air 02/03/22 03:00 95 Room Air 02/03/22 02:13 96 Room Air PG Care Time/CCT Total # of Minutes Spent Total Time Spent with Patient: Total time spent is greater than 50% in coordination of care (as documented) at patient's floor/unit and/or counseling patient: Coding Level of Care Code 96841 Subseq Hosp Care Lvl 2 Diagnoses NSTEMI (non-ST elevated myocardial infarction) I21.4 Coronary artery calcification seen on computed tomography I25.10 Hyperlipidemia E78.00; E78.0 Hyperlipidemia type: pure hypercholesterolemia Polymyalgia rheumatica M35.3 Pre-diabetes R73.03 Anxiety F41.9 COVID-19 virus infection U07.1 (1) Hyperlipidemia Hyperlipidemia type: pure hypercholesterolemia Qualified Code(s): E78.00 - Pure hypercholesterolemia, unspecified; E78.0 - Pure hypercholesterolemia
[2022-02-03] MEDS: fluvoxaMINE MALEATE 50 MG TAB PO SCH ×2 (15:25→19:50)
--- NOTE | 2022-02-03 15:37 | Post Anesthesia Assessment ---
Date of Service February 03, 2022 Post Sedation Assessment Vital Signs Temp Pulse Pulse Pulse Resp BP BP 02/03/22 14:40 97.3 F L 62 17 111/67 02/03/22 14:24 70 15 99/72 L 02/03/22 14:13 66 15 108/65 02/03/22 11:57 61 02/03/22 11:27 98.4 F 65 16 111/65 02/03/22 07:08 97.9 F 70 18 112/70 02/03/22 05:32 98.2 F 67 16 118/74 02/03/22 05:32 02/03/22 05:02 62 16 107/69 02/03/22 04:30 75 20 135/83 02/03/22 04:00 133/86 02/03/22 03:00 76 20 145/102 H 02/03/22 03:00 71 02/03/22 03:00 72 14 145/102 H 02/03/22 03:00 02/03/22 02:13 96.8 F L 69 20 148/90 H Pulse Ox O2 Del Method 02/03/22 14:40 95 Room Air 02/03/22 14:24 92 02/03/22 14:13 94 02/03/22 11:57 02/03/22 11:27 91 Room Air 02/03/22 07:08 97 Room Air 02/03/22 05:32 98 Room Air 02/03/22 05:32 Room Air 02/03/22 05:02 96 Room Air 02/03/22 04:30 95 Room Air 02/03/22 04:00 95 Room Air 02/03/22 03:00 95 02/03/22 03:00 95 Room Air 02/03/22 03:00 95 Room Air 02/03/22 03:00 95 Room Air 02/03/22 02:13 96 Room Air Recovery Score Activity: Moves 4 extremities Respiration: Deep Breath/Cough Circulation: +/-20% PreAnes Value Consciousness: Fully Awake Oxygen Saturation: > 92% On Room Air Post Anesthesia Score: 10 Discharge Sedation Level of Care: Fast Track Phase II Post Sedation Plan On clinical assessment, the patient appears to have tolerated the sedation without complications. Patient is recovering as anticipated. Patient will continue to be monitored by nursing and may be discharged when sedation discharge criteria are met per below protocol. Upon Completions of procedure up to 15 minutes continue every 5 minute vital signs and the P.A.R. score; then discharge to a Phase I or Fast Track to Phase II per the following guidelines: * Discharge Patient to appropriate Phase II area if PAR is 8 or greater or return to pre- procedure baseline. The post - procedure orders will be as directed. * If PAR score is less than 8 or not return to pre-procedure baseline then patient will follow Phase I monitoring till PAR is reached for Phase II. The Phase I may be done in procedure room or may call to secure a Phase I area. * If naloxone or flumazenil are used for reversal, hold in Phase I for continued monitoring from when last reversal dose was given for a minimum of 60 minutes or longer pending the nurse and/or physician discretion of patient condition before discharge to Phase II. Please call the Sedation Physician to re-evaluate and complete post-note for discharge to Phase II area. Do NOT discharge from procedure sedation or Phase 1 until post- sedation evaluation note is complete by procedure /sedation MD Sedation Discharge Instructions to be given to the patient at discharge to home.
--- NOTE | 2022-02-03 15:54 | Cardiac Catheterization ---
[facility] Data: Teletype Operator Cardiac Status Clinical evaluation leading to the procedure CAD Presenation: Non STEMI Anginal Classification: CCS IV Diagnostic Physicians Name: Rudi Cordoba MD Closure Device Recommendations: PCI without planned CABG Cardiac Cath Procedure Full Procedure Date February 03, 2022 Pre-Procedure Diagnosis Pre-Procedure Diagnosis: Non STEMI AUC Score AUC Score: 8 Post-Procedure Diagnosis Post-Procedure Diagnosis: Severe CAD, Successful PCI and Normal Intracardiac Pressures Procedure(s) Performed Procedure(s) Performed: Coronary Angiography, Left Heart Cath and Drug Eluting Stent [employer] Motor Mechanic Rudi Cordoba MD Motor Adjuster(s) Perinatal Technician Estimated Blood Loss Estimated Blood Loss: 15 Medication(s) Medication(s): Fentanyl, Heparin, Lidocaine 1%, Nicardipine, Nitroglycerin and Versed Summary of Findings Indication: NSTEMI. New inferolateral wall motion abnormality on echo Access: 6 Fr right radial artery Catheters: [place], JL 3.5, EBU 3.5 guide Findings: LM -normal caliber, no significant disease LAD -medium caliber, mildly calcified, diffuse up to 50% proximal to mid segment disease. Distal vessel without significant disease and wraps around apex. Small to medium D1 with 95% ostial stenosis. Circumflex -large caliber, no significant disease. 100% acute ostial occlusion of OM2 RCA -medium caliber, dominant, luminal irregularities LVEDP -18 -- PCI -- Antithrombotic therapy: Heparin, clopidogrel Procedure: Left main cannulated with EBU 3.5 guide Pre-procedure flow CARLOS 0 Chemical Lab Supervisor 50 wire placed into distal circumflex Whisper wire passed across OM2 ostial occlusion into distal vessel OM 2 occlusion predilated with 2.0 compliant balloon Dilated lesion stented with 2.25 x 22 mm [place] ALISON placed from OM2 ostium to mid segment Stent post-dilated with stent balloon IC vasodilators administered for spasm Post procedure CARLOS 3 flow, stent well expanded with minimal residual stenosis and no apparent cardiac complications. Arterial Closure: TR band Summary: 1. Multi-vessel coronary artery disease -100% acute ostial OM2 occlusion Diffuse 50% proximal to mid LAD disease 95% ostial first diagonal stenosis (borderline size for stenting) 2. Mildly elevated intracardiac filling pressure (LVEDP 18). 3. Successful PCI of ostial/proximal OM2 with single drug-eluting stent (2.25 x 22 mm Guzman). Recommendations: To PCU for continued monitoring Loaded with clopidogrel 600 mg in Teletype Operator Continue dual-antiplatelet therapy for at least 1 year Continue statin, and ASCVD risk factor modification Consult cardiac Rehab Medically manage residual CAD. If refractory anginal symptoms in the future could consider attempted PCI of first diagonal versus FFR/PCI of LAD Hemodynamics Rest Ao:: 99/62/91 Final Ao: 107/65/98 LV: 103/18 Recommendations Recommendations: PCI without planned CABG Specimens Specimens: None Radiation Exposure (mGy) 3232 Contrast (mls) 125 Anesthesia Moderate 8393-4567 Procedural Complication(s) None Disposition PCU I attest to the content of the Intraoperative Record and any orders documented therein. Any exceptions are noted below. [facility] Card Cath Procedure Codes Cardiac Catheterization Procedure 1: Cardiovascular Cath Procedures: 49457 Coronaries and LHC (+/-LV) Moderate Sedation Procedure 1: Sedation/Anesthesia: 29589 Mod Sedation by the same physician;Init15 Min Child Age 5 & Up Procedure 2: Sedation/Anesthesia: 09889 Mod Sedation by the same physician; Ea [id number] Minutes Stenting Procedure 1: Cardiovascular Stent Procedures: 00623 Perc transluminal revascularization of acute sub/total occl, aMI PG Care Time/CCT Total # of Minutes Spent Total Time Spent with Patient: Total time spent is greater than 50% in coordination of care (as documented) at patient's floor/unit and/or counseling patient:
[2022-02-03] MEDS ORDERED: SODIUM CHLORIDE 0.9% 1000ML 1,000 ML IV SCH (16:15)
[2022-02-03] MEDS ORDERED: predniSONE 5 MG TAB PO ONE (16:51)
[2022-02-03] MEDS ORDERED: ACETAMINOPHEN 325 MG TAB PO PRN (18:17)
[2022-02-03] MEDS: METOPROLOL TARTRATE 25 MG TAB PO SCH (19:50)
--- NOTE | 2022-02-03 22:49 | XCELERA ---
[id number]
--- NOTE | 2022-02-04 05:41 | Electrocardiogram Report ---
Test Reason : Blood Pressure : / mmHG Vent. Rate : 071 BPM Atrial Rate : 071 BPM P-R Int : 170 ms QRS Dur : 078 ms QT Int : 408 ms P-R-T Axes : 030 021 004 degrees QTc Int : 443 ms Normal sinus rhythm Nonspecific ST abnormality Abnormal ECG When compared with ECG of 25-JAN-2021 17:33, ST depression now present in inferolateral leads Confirmed by Charlie Reyes ([id number]) on 02/04/2022 5:41:04 AM Referred By: REFERRED SELF Confirmed By:Charlie Reyes
--- NOTE | 2022-02-04 05:43 | Electrocardiogram Report ---
Test Reason : Blood Pressure : / mmHG Vent. Rate : 075 BPM Atrial Rate : 075 BPM P-R Int : 174 ms QRS Dur : 080 ms QT Int : 410 ms P-R-T Axes : 032 007 -05 degrees QTc Int : 457 ms Normal sinus rhythm Nonspecific ST abnormality Abnormal ECG When compared with ECG of 03-FEB-2022 02:23, No significant change was found Confirmed by Charlie Reyes ([id number]) on 02/04/2022 5:42:50 AM Referred By: REFERRED SELF Confirmed By:Charlie Reyes
[2022-02-04] MEDS ORDERED: TICAGRELOR 90 MG TAB PO ONE (08:00)
[2022-02-04] MEDS: METOPROLOL TARTRATE 25 MG TAB PO SCH (08:38)
[2022-02-04] MEDS ORDERED: ASPIRIN 81 MG ECTAB PO SCH (09:00)
[2022-02-04] MEDS ORDERED: ATORVASTATIN 40 MG TAB PO SCH (09:00)
[2022-02-04] MEDS ORDERED: predniSONE 20 MG TAB PO SCH (09:00)
[2022-02-04] MEDS ORDERED: CLOPIDOGREL BISULFATE 75 MG TAB PO SCH (09:00)
[2022-02-04] MEDS ORDERED: lisinopril 5 MG TAB PO SCH (09:00)
--- NOTE | 2022-02-04 09:28 | Cardiology Progress Note ---
Date of Service February 04, 2022 Assessment & Plan (1) NSTEMI (non-ST elevated myocardial infarction): Plan: 2. Multivessel CAD - occluded OM2 - post ALISON - diffuse 50% mid LAD, 95% ostial D1 3. CardiomyopathyEF 45% with inferolateral wall motion abnormality 4. PMRon chronic steroids Stable from a cardiac standpoint. Ok for discharge today. Home on: -- DAPT with ASA and Ticagrelor -- Continue current metoprolol, lisinopril --> can transition to toprol XL on discharge -- Continue high intensity statin --> previously tolerated rosuvastatin Follow-up with me in 1-2 weeks. Admission and Anticipated Discharge Date Admission Date: February 03, 2022 Subjective Feeling well today. No recurrent chest pain. Tele reviewed -- no events. Review of Systems Review of Systems: All systems reviewed & are unremarkable except as noted in HPI & below Physical Exam Physical Exam: General: Comfortable HEENT: Sclerae anicteric Lungs: Clear to auscultation bilaterally, no crackles or wheezes Cardiac: Regular rate and rhythm, no murmurs. Vascular: 2+ radial, no hematoma. Abdomen: Soft, nontender Extremities: Well perfused, no peripheral edema. Bilateral tel angiectasias/reticular veins Neuro: Nonfocal Psych: Alert orient x3, normal affect and mood Results & Data ([facility]) Vital Signs (Past 12 Hours) Vital Signs Temp Pulse Pulse Resp BP Pulse Ox O2 Del Method 02/04/22 07:33 97.9 F 58 L 18 110/69 96 Room Air 02/04/22 07:15 64 02/04/22 02:56 98.6 F 56 L 15 102/59 L 93 Room Air 02/03/22 23:22 69 02/03/22 23:09 98.2 F 74 18 106/69 95 Room Air PG Care Time/CCT Total # of Minutes Spent Total Time Spent with Patient: Total time spent is greater than 50% in coordination of care (as documented) at patient's floor/unit and/or counseling patient: Coding Level of Care Code 87769 Subseq Hosp Care Lvl 3 Diagnoses NSTEMI (non-ST elevated myocardial infarction) I21.4
[2022-02-04 09:49] LABS: BUN Creatinine Ratio 14.1 (10-20); Calcium 9.3 mg/dl (8.5-10.1); Chol HDL Ratio 5.2 (0-5); Creatinine Clr Calc Pharmacy 87.6 ml/min; Est GFR (African American) 100.1 ml/min; Est GFR (Non-African American) 86.4 ml/min; Magnesium 2.1 mg/dl (1.7-2.4); Phosphorus 2.9 mg/dl (2.5-4.9); Potassium 3.6 mmol/L (3.5-5.1)
[2022-02-04] MEDS: fluvoxaMINE MALEATE 50 MG TAB PO SCH (09:51)
[2022-02-04 10:17] LABS: Estimated Average Glucose 126 mg/dl
--- NOTE | 2022-02-04 14:53 | Discharge Summary ---
Date of Service February 04, 2022 Principal Diagnosis NSTEMI Discharge Exam General: A&Ox3. NAD. Cooperative. HEENT: Atraumatic, normocephalic. Vision/hearing intact. Pupils equal and reactive to light Pulm: CTAB A&P. -wheezes, -rales, -rhonchi. Symmetrical chest rise. No increase in work of breathing. No respiratory distress. Cardiac: RRR, -mrg. Radial pulses intact and symmetrical. Abdominal: Nontender, nondistended, soft. BS present. Extremities: Right wrist with gauze dressing overlying access site, C/D/I without bleeding or hematoma. Sensation intact in all fingertips bilaterally without deficit, opening closing hand intact without pain. Discharge Data Allergies Allergy/AdvReac Type Severity Reaction Status Date / Time No Known Allergies Allergy Verified 02/03/22 02:38 Consultations 02/03/22 03:29 ED Decision to Admit Stat 02/03/22 05:28 Consult Cardiology Routine 02/03/22 16:05 Consult Cardiac Rehabilitation Routine Procedures Performed Operation Date: 02/03/22 12:30 Actual Procedures p Cath, Left with Cors and Vent - Hiro Cordoba MD s Cineradiography w/Routine Exam - Hiro Cordoba MD s Drug Eluting Stent SGl Vessel - Hiro Cordoba MD Ordered Studies 02/03/22 13:01 CL Cath Imgs for PACS use only Routine Hospital Course (1) NSTEMI (non-ST elevated myocardial infarction): NSTEMI (non-ST elevated myocardial infarction): - 66yo male with a history of HLD, CAD, MADISON, MDD, polymyalgia rheumatica, and impaired fasting glucose presents with a few-hour history of left chest pain, left arm pain, left shoulder pain, and left jaw pain suspected secondary to NSTEMI. Underwent cardiac cath and was found to have multivessel CAD, had 1 stent placed to occluded OM 2. Discharged on DAPT, metoprolol, lisinopril, high intensity statin. To do as outpatient: 1. Continue dual antiplatelet therapy with aspirin 81 mg, ticagrelor 90 mg twice daily 2. Continue metoprolol succinate 50 mg daily 3. Continue lisinopril 5 mg p.o. every morning 4. Continue rosuvastatin 20 mg p.o. every morning. Patient has had intolerance due to fatigue to atorvastatin in the past. 5. Follow-up with PCP in 1 to 2 weeks, LFT check after resuming statin 6. Follow-up to cardiology NSTEMI, CAD Patient with initial troponin high-sensitivity 525 --> 457 Echo showing EF reduction to 45% with inferior lateral wall motion abnormality Treated with heparin GTT on admission Cath showing multivessel disease, occluded OM 2 post ALISON, diffuse 50% mid LAD, 95% ostial D1 disease Echo with inferior lateral wall motion abnormality and reduction in EF to 45% Discharged on DAPT with Brilinta and aspirin, metoprolol, lisinopril, rosuvastatin as above Tolerated cath well without complications, had complete resolution of pain following procedure HLD Rosuvastatin as noted. Intolerant in the past to atorvastatin. MADISON, MDD: continue home fluvoxamine Impaired fasting glucose: A1c 5.9% Polymyalgia rheumatica: continue home prednisone FEN: NPO, moved to heart healthy post procedure Code status: Conditional code, no intubation DVT ppx: heparin gtt during admission Consults: cardiology Dispo: PCU (2) Coronary artery calcification seen on computed tomography: (3) Hyperlipidemia: (4) Polymyalgia rheumatica: (5) Pre-diabetes: (6) Anxiety: (7) COVID-19 virus infection: Total Time Total Time Spent Total Time Spent (In Minutes): Time spend day of discharge minutes including direct patient care, documentation, review of labs and images, and coordination of care. Discharge Plan Discharge Items Patient Disposition: Home - Self-Care Reason For Visit: NSTEMI Discharge Diagnosis: NSTEMI Activity: Per Instructions section Non-emergency contact: Primary Care Provider and Food Concession Manager Call non-emergency contact if: you have any medication questions, your symptoms worsen and your pain is not controlled Follow-up/Referrals: Murtaza Sharma MD [Primary Care Provider] - 02/18/22 3:45 pm (Please follow up with Dr. Sharma on Thursday02/18/22 at 3:45 pm. Please arrive to the office at 3:30 pm for your appointment. If you are unable to keep this appointment, please call the office to reschedule at [phone].) Diet: Heart Healthy Addtl Attending Provider Instructions: You were seen in the hospital for an NSTEMI, a type of heart attack. You underwent a cardiac cath and had a single drug eluting stend (ALISON) placed to your OM2. Your echocardogram did show altered heart motion with a reduced pumping of 45% (normal is ~55%). This may improve over time, and you will have followup with cardiology You have been started on two antiplatelet medications, aspirin and ticagrelor. Please take aspirin 81mg daily and ticagrelor 90mg twice daily. These medications are important to protect your heart stent. You have been started on a heart/blood pressure medication, metoprolol. Please take metoprolol succinate by mouth once daily. You have been started on a blood pressure/heart medication, lisinopril. Please take lisinopril 5mg by mouth daily. You will need followup blood work (a BMP) in ~2 weeks at followup with your primary care physician. Please continue rosuvastatin 20mg daily. A cardiology followup is being scheduled for within ~2 weeks. A PCP followup is being scheduled for within ~2 weeks. If you develop any new or worsening symptoms including fever, chills, sweats, chest pain, chest pressure, difficulty breathing, uncontrolled nausea/vomiting, rash, wheezing, passing out or nearly passing out, bleeding, black/bloody bowel movements, or other new or concerning symptoms please call your primary care physician, or call 911 for re-evaluation in the emergency department if you are very concerned. Stand-Alone Forms: My [facility], Smoking Cessation Medications and DC Order Prescriptions: New lisinopril [Zestril] 5 mg Tablet 5 mg PO QAM 30 Days Qty: 30 0RF Brilinta 90 mg Tablet 90 mg PO BID 60 Days Qty: 120 0RF metoprolol succinate 50 mg tablet extended release 24 hr 50 mg PO DAILY Qty: 30 0RF aspirin 81 mg Tablet,Delayed Release (Dr/Ec) 81 mg PO QAM 30 Days Qty: 30 0RF rosuvastatin [Crestor] 20 mg Tablet 20 mg PO QAM 30 Days Qty: 30 0RF Continued fluvoxamine 100 mg tablet 100 mg PO BID Qty: 180 1RF diclofenac sodium 75 mg tablet,delayed release (DR/EC) 75 mg PO BID acetaminophen [Tylenol Extra Strength] 500 mg Tablet 1,000 mg PO Q6H PRN (Reason: Pain) prednisone 20 mg PO 1XD Discharge Orders: Discharge Order (Routine); Ordered 02/04/22 Ordered By: Murtaza Hagen/Other Patient Handouts: Prediabetes, 5 Steps for Eating Healthier Admission Data Admit Date/Time: 02/03/22 04:23 Attending Provider: Murtaza Rai Admit Provider: Frank Huerta Primary Care Provider: Murtaza Sharma Other Providers: Hiro Cordoba ; Cristian Valerio Coding Level of Care Code D/C DAY MANAGEMENT >30 MINS Diagnoses NSTEMI (non-ST elevated myocardial infarction) I21.4 Coronary artery calcification seen on computed tomography I25.10 Hyperlipidemia E78.00; E78.0 Hyperlipidemia type: pure hypercholesterolemia Polymyalgia rheumatica M35.3 Pre-diabetes R73.03 Anxiety F41.9 COVID-19 virus infection U07.1
[2022-02-04] MEDS ORDERED: TICAGRELOR 90 MG TAB PO SCH (21:00)
--- NOTE | 2022-02-05 05:59 | Electrocardiogram Report ---
Test Reason : Blood Pressure : / mmHG Vent. Rate : 066 BPM Atrial Rate : 066 BPM P-R Int : 180 ms QRS Dur : 084 ms QT Int : 412 ms P-R-T Axes : 031 018 -11 degrees QTc Int : 431 ms Normal sinus rhythm Nonspecific ST abnormality Abnormal ECG When compared with ECG of 03-FEB-2022 03:02, No significant change was found Confirmed by Charlie Reyes ([id number]) on 02/05/2022 5:59:13 AM Referred By: REFERRED SELF Confirmed By:Charlie Reyes
[2022-02-06] MEDS ORDERED: ROSUVASTATIN CALCIUM 20 MG TAB PO SCH (09:00)
== END 2022-02-04 12:38 | disposition home or self-care (01) | DRG 247 ==
LOC: ED 02:10 → SUATTDRO 04:23 → 2S 04:23

== ENCOUNTER 2022-02-09 19:30 | Inpatient (IN) ==
--- NOTE | 2022-02-09 19:47 | Emergency Department Note ---
Impression & Plan Renal colic on right side, Acute right flank pain, Hematuria, History of MD (myocardial infarction), Elevated troponin ED Provider Note NAME: RUPERTO CLANCY AGE: 66 SEX: M : 1955 ARRIVES VIA: Walk-In INFORMANT: Patient, ED PROVIDER(S): Frank Chau MD Chief Complaint: Abdominal pain HPI: Patient presents due to concern for abdominal pain which began yesterday around 6 PM. The patient's had intermittent bouts of pain but states that has lasted for several hours at a time. Patient denies any fevers chills chest pains or shortness of breath but has had some nausea without vomiting. Patient states that pain has been intermittent and he did not take anything for it at home. Patient does complain of some right testicular pain and does have some chronic discomfort there but this seems worse to where it does radiate into the his right flank. Patient [place] any prior history of kidney stones and denies any obvious blood in the urine or stool. Patient's had a recent bowel movement. Patient denies any left-sided pain falls or trauma. No numbness tingling or focal weakness in the patient has no saddle anesthesia. Patient did have a recent NSTEMI. Patient did have 100% acute ostial occlusion of OM2. Patient had 50% disease in the proximal LAD and 95% ostial stenosis of D1. Patient did have PCI of ostial proximal OM 2 with single ALISON. LAD with a normal left main and fairly normal RCA. ROS: See HPI for pertinent positives and negatives. A total of 10 systems were reviewed and otherwise negative. Past medical history: See below Surgical history: See below Social history: See below Physical Exam: GENERAL: Wearing glasses and uncomfortable in appearance. EYE EXAM: Normal conjunctiva. PERRL, no anisocoria and EOM's grossly intact w/o pain. NECK: Supple, no nuchal rigidity, no adenopathy, non-tender. No signs of meningismus. FROM of the neck with good chin to chest and neck extension. No stridor. LUNGS: Clear to auscultation. Normal chest wall mechanics. HEART: NSR, no MRG. ABDOMEN: Abdomen soft, right-sided abdominal pain, normo-active bowel sounds, no masses, no rebound or guarding. BACK: No CVA TTP. SKIN: No rashes and no bruising. UPPER EXTREMITIES: Upper extremities are grossly normal. LOWER EXTREMITIES: Grossly normal, no edema. NEURO EXAM: A&O x3, cranial nerves II-XII grossly intact, normal speech, moves all 4 extremities. Differential diagnoses: Renal colic, UTI, appendicitis, diverticulitis, mesenteric ischemia, aortic pathology, infections, inflammatory bowel disease, PUD, biliary pathology, as well as other pathologies. Course: Patient was seen and evaluated the bedside. Full history physical exam was performed. EKG interpreted by me Normal sinus rhythm, rate of 64, normal intervals, normal axis, no ST changes. T wave version aVL. T wave version aVL may be new from comparison completed February 04, 2022. Imaging Studies: CT abdomen pelvis with IV contrast per stat read shows obstructing kidney stone just proximal to the UPJ. Cardiac monitoring: An order was placed for continuous cardiac monitoring. The monitor shows a rate of 67 with sinus rhythm. MDM: Patient presented to concern for right-sided abdominal and flank pain. Blood work is obtained along with CT abdomen pelvis. Patient was ordered IV fluids, IV morphine and IV Zofran. Patient has a normal white count H&H and platelet count. Kidney function is slightly worse compared to prior as the patient's prior creatinine on February 04 was 0.9 today is 1.49. Patient did receive the IV fluids. Troponin is elevated at 680 with the patient's not complained of any chest pain or shortness of breath patient's EKG does not show any significant changes from his most recent. Patient was given the rest of a full dose aspirin as a precaution. Upon reassessment the patient had significant improvement in pain to where it was virtually resolved. Patient does have some right-sided perinephric stranding with hydroureter with an obstruction 3.3 x 2.8 mm calculus. It is distally just proximal to the UPJ. 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 Urinalysis does show blood. Patient CT abdomen pelvis does show concern for kidney stone. I did speak with the on-call hospitalist given the patient's elevated troponin in light of the patient's recent MD. Currently the patient does not require STEMI activation or [employer] given his lack of EKG changes and lack of chest pain. Patient will be admitted to the medicine service. Past Med/Surg History Medical History Anxiety Back pain, lumbosacral Carpal tunnel syndrome Chronic pain syndrome Claustrophobia Fibromyalgia History of COVID-19 07/01/20 [facility]; cough, sob, fever, fatigue, chills, sore throat, loss of taste/smell; reports all symptoms resolved aside from loss of taste/smell History of kidney stones Hyperlipidemia HX Left lumbar radiculopathy Lumbar disc prolapse with compression radiculopathy Lumbar spinal stenosis OCD (obsessive compulsive disorder) Panic anxiety syndrome Pre-diabetes Rheumatoid arthritis Surgical History History of colonoscopy History of surgical removal of ganglion cyst Hx of vasectomy S/P epidural steroid injection 01/2021 Family History Uncle Myocardial infarction Mother Coronary heart disease Other No family history of adverse response to anesthesia Denies family history of Ovarian cancer Prostate cancer Breast cancer Lung cancer Colorectal cancer Social History Smoking Status: Never smoker Second Hand Exposure: No; Hx Alcohol Use: Yes Alcohol type: wine Hx Substance Use: No Preferred Language: Japanese Communication Ability: Effective Visual Impairment: No Limitations Hearing Ability: Normal Returned Item Clerk Required: No Beliefs That Will Affect Care: None marital status: Current Living Situation: Spouse current occupational status: retired Feels Safe at Home: Yes Childhood Exposure to Second-Hand Smoke: No Diet Comment: regular caffeine: Yes during the past year weight has: remained stable Dental Care, Regularly: Yes Physical Activity Frequency: Daily Physical Activity Frequency Comment: States active at home Seatbelt Use: always Sunscreen Use: Yes Assistive Devices: Cane and Glasses Allergies Allergies Allergy/AdvReac Type Severity Reaction Status Date / Time No Known Allergies Allergy Verified 02/03/22 02:38 Home Meds Home Medications Medication Instructions Recorded Confirmed diclofenac sodium 75 mg 75 mg PO BID 04/26/19 02/09/22 tablet,delayed release acetaminophen 500 mg tablet 1,000 mg PO Q6H PRN Pain 01/25/21 02/09/22 (Tylenol Extra Strength) prednisone 20 mg PO 1XD 02/03/22 02/09/22 Previous Rx's Medication Instructions Recorded fluvoxamine 100 mg tablet 100 mg PO BID #180 tabs 10/16/21 aspirin 81 mg tablet,delayed 81 mg PO QAM 30 days #30 tabs 02/04/22 release lisinopril 5 mg tablet (Zestril) 5 mg PO QAM 30 days #30 tabs 02/04/22 metoprolol succinate 50 mg 50 mg PO DAILY #30 tabs 02/04/22 tablet,extended release 24 hr rosuvastatin 20 mg tablet (Crestor) 20 mg PO QAM 30 days #30 tabs 02/04/22 ticagrelor 90 mg tablet (Brilinta) 90 mg PO BID 60 days #120 tabs 02/04/22 Results & Data (ED) Vital Signs Vital Signs - 24 hr 02/09/22 19:37 02/09/22 21:11 02/09/22 19:48 Temperature 36.7 C Temperature Source Temporal Artery Scan Pulse Rate 63 67 Pulse Rate from SpO2 Sensor Pulse Rhythm Regular Pulse Strength Normal Respiratory Rate 18 21 Respiratory Effort / Characteristics Non-Labored Spontaneous Respiratory Depth Normal Respiratory Pattern Regular Blood Pressure 147/85 H Blood Pressure Mean 105 Blood Pressure Position Sitting Pulse Oximetry 97 Oxygen Delivery Method Room Air Room Air Room Air Sepsis Recent Fever Within 48 Hours No Sepsis New/Unexplained Change in Mental Status N/A Sepsis Action Taken by Nursing No Action Required 02/09/22 19:50 02/09/22 20:00 02/09/22 20:10 Temperature Temperature Source Pulse Rate 67 69 63 Pulse Rate from SpO2 Sensor Pulse Rhythm Pulse Strength Respiratory Rate 18 27 H 26 H Respiratory Effort / Characteristics Respiratory Depth Respiratory Pattern Blood Pressure Blood Pressure Mean Blood Pressure Position Pulse Oximetry Oxygen Delivery Method Room Air Room Air Room Air Sepsis Recent Fever Within 48 Hours Sepsis New/Unexplained Change in Mental Status Sepsis Action Taken by Nursing 02/09/22 20:59 02/09/22 21:00 02/09/22 21:00 Temperature Temperature Source Pulse Rate 67 50 L Pulse Rate from SpO2 Sensor 76 65 Pulse Rhythm Pulse Strength Respiratory Rate 18 Respiratory Effort / Characteristics Respiratory Depth Respiratory Pattern Blood Pressure 130/74 Blood Pressure Mean 92 Blood Pressure Position Pulse Oximetry 100 99 Oxygen Delivery Method Room Air Room Air Room Air Sepsis Recent Fever Within 48 Hours Sepsis New/Unexplained Change in Mental Status Sepsis Action Taken by Nursing 02/09/22 21:09 02/09/22 21:09 02/09/22 21:10 Temperature Temperature Source Pulse Rate 51 L Pulse Rate from SpO2 Sensor 67 71 Pulse Rhythm Pulse Strength Respiratory Rate 17 24 Respiratory Effort / Characteristics Respiratory Depth Respiratory Pattern Blood Pressure 125/79 Blood Pressure Mean 94 Blood Pressure Position Pulse Oximetry 99 98 Oxygen Delivery Method Room Air Room Air Sepsis Recent Fever Within 48 Hours Sepsis New/Unexplained Change in Mental Status Sepsis Action Taken by Nursing 02/09/22 21:20 02/09/22 21:30 02/09/22 21:30 Temperature Temperature Source Pulse Rate 74 65 Pulse Rate from SpO2 Sensor 73 65 Pulse Rhythm Pulse Strength Respiratory Rate 15 15 Respiratory Effort / Characteristics Respiratory Depth Respiratory Pattern Blood Pressure 135/75 Blood Pressure Mean 95 Blood Pressure Position Pulse Oximetry 98 98 Oxygen Delivery Method Room Air Room Air Room Air Sepsis Recent Fever Within 48 Hours Sepsis New/Unexplained Change in Mental Status Sepsis Action Taken by Nursing 02/09/22 21:40 02/09/22 22:05 02/09/22 22:10 Temperature Temperature Source Pulse Rate 67 67 76 Pulse Rate from SpO2 Sensor 68 Pulse Rhythm Pulse Strength Respiratory Rate 17 19 12 Respiratory Effort / Characteristics Respiratory Depth Respiratory Pattern Blood Pressure Blood Pressure Mean Blood Pressure Position Pulse Oximetry 99 Oxygen Delivery Method Room Air Room Air Room Air Sepsis Recent Fever Within 48 Hours Sepsis New/Unexplained Change in Mental Status Sepsis Action Taken by Nursing 02/09/22 22:20 02/09/22 22:30 02/09/22 22:30 Temperature Temperature Source Pulse Rate 73 67 Pulse Rate from SpO2 Sensor Pulse Rhythm Pulse Strength Respiratory Rate 27 H 18 Respiratory Effort / Characteristics Respiratory Depth Respiratory Pattern Blood Pressure 124/72 Blood Pressure Mean 89 Blood Pressure Position Pulse Oximetry Oxygen Delivery Method Room Air Room Air Room Air Sepsis Recent Fever Within 48 Hours Sepsis New/Unexplained Change in Mental Status Sepsis Action Taken by Nursing 02/09/22 22:40 02/09/22 22:50 02/09/22 23:00 Temperature Temperature Source Pulse Rate 68 66 Pulse Rate from SpO2 Sensor 69 66 Pulse Rhythm Pulse Strength Respiratory Rate 10 L 16 Respiratory Effort / Characteristics Respiratory Depth Respiratory Pattern Blood Pressure 134/58 L Blood Pressure Mean 83 Blood Pressure Position Pulse Oximetry 99 99 Oxygen Delivery Method Room Air Room Air Room Air Sepsis Recent Fever Within 48 Hours Sepsis New/Unexplained Change in Mental Status Sepsis Action Taken by Nursing 02/09/22 23:00 02/09/22 23:24 Temperature Temperature Source Pulse Rate 67 79 Pulse Rate from SpO2 Sensor 67 63 Pulse Rhythm Pulse Strength Respiratory Rate 17 19 Respiratory Effort / Characteristics Respiratory Depth Respiratory Pattern Blood Pressure Blood Pressure Mean Blood Pressure Position Pulse Oximetry 98 99 Oxygen Delivery Method Room Air Room Air Sepsis Recent Fever Within 48 Hours Sepsis New/Unexplained Change in Mental Status Sepsis Action Taken by [facility] Medications Current Medication List: was personally reviewed by me Laboratory Data Attestation: I reviewed the patient's lab results. Result diagrams: 02/09/22 19:56 02/09/22 19:56 Lab Results 02/09/22 02/09/22 02/09/22 Range/Units 19:56 19:56 20:06 WBC 9.15 (4.8-10.8) K/ul RBC 4.74 (4.63-6.08) M/uL Hgb 14.7 (14.0-18.0) g/dl POC Hgb 15.3 (14.0-18.0) g/dl Hct 43.9 (40.1-51.0) % POC Hct 45 (42-52) % MCV 92.6 (80.0-100.0) fL MCH 31.0 (25.0-34.0) pg MCHC 33.5 (32.0-36.0) g/dL RDW Std Deviation 41.7 (36.4-46.3) fL RDW Coeff of Casey 12.0 (11.5-14.5) % Plt Count 234 (130-400) K/uL MPV 10.4 (9.4-12.4) fL Immature Gran % (Auto) 0.4 % Neut % (Auto) 66.1 % Lymph % (Auto) 22.4 % [place] % (Auto) 9.0 % Eos % (Auto) 1.9 % Baso % (Auto) 0.2 % Neut # (Auto) 6.05 (1.4-6.5) K/uL Lymph # (Auto) 2.05 (1.2-3.4) K/uL [place] # (Auto) 0.82 (0.24-0.82) K/uL Eos # (Auto) 0.17 (0-0.50) K/uL Baso # (Auto) 0.02 (0-0.2) K/uL Immature Gran # (Auto) 0.04 H (0.00-0.02) K/uL POC Sodium 138 (135-144) mmol/L Sodium 137 (136-145) mmol/L POC Potassium 3.9 (3.3-5.0) mmol/L Potassium 3.9 (3.5-5.1) mmol/L POC Chloride 102 (101-112) mmol/L Chloride 101 (98-107) mmol/L Carbon Dioxide 26 (21-32) mmol/L POC Total CO2 24 (24-31) mmol/L Anion Gap 10 (3-11) POC Anion Gap 17.0 (16-25) mmol/L POC BUN 31 H (7-18) mg/dl BUN 31 H (6-23) mg/dl Creatinine 1.49 H (0.6-1.4) mg/dl POC Creatinine 1.6 H (0.6-1.3) mg/dl Est Cr Clr Drug Dosing 53.3 ml/min Est GFR ( Amer) 55.9 ml/min Est GFR (Non-Af Amer) 48.2 ml/min BUN/Creatinine Ratio 20.8 H (10-20) Glucose 103 H (70-99(Fasting)) mg/dl POC Glucose (other) 108 H (70-99) mg/dl Calcium 9.9 (8.5-10.1) mg/dl POC Ioniz Calcium Sheila 1.23 (1.12-1.32) mmol/l Total Bilirubin 0.4 (0.2-1.0) mg/dl AST 22 (13-39) U/L ALT 15 (7-52) U/L Alkaline Phosphatase 92 (34-104) U/L Troponin I High Sens 680.9 H* D (0-20) pg/ml Total Protein 7.1 (6.0-8.3) gm/dl Albumin 4.5 (3.4-5.0) gm/dl Globulin 2.6 (2.5-4.0) gm/dl Albumin/Globulin Ratio 1.7 (0.9-2) Lipase 37 (11-82) U/L Urine Color Urine Appearance (Clear) Urine pH (4.5-7.5) Ur Specific [place] (1.000-1.030) Urine Protein (Negative) Urine Glucose (UA) (Negative) Urine Ketones (Negative) Urine Blood (Negative) Urine Nitrite (Negative) Urine Bilirubin (Negative) Urine Urobilinogen (Negative) Ur Leukocyte Esterase (Negative) Urine WBC (Auto) (0-5) /hpf Urine RBC (Auto) (0-4) /hpf U Hyaline Cast (Auto) (0-5) /lpf U Epithel Cells (Auto) (0-5) /lpf Urine Bacteria (Auto) (Negative) 02/09/22 Range/Units 21:00 WBC (4.8-10.8) K/ul RBC (4.63-6.08) M/uL Hgb (14.0-18.0) g/dl POC Hgb (14.0-18.0) g/dl Hct (40.1-51.0) % POC Hct (42-52) % MCV (80.0-100.0) fL MCH (25.0-34.0) pg MCHC (32.0-36.0) g/dL RDW Std Deviation (36.4-46.3) fL RDW Coeff of Casey (11.5-14.5) % Plt Count (130-400) K/uL MPV (9.4-12.4) fL Immature Gran % (Auto) % Neut % (Auto) % Lymph % (Auto) % [place] % (Auto) % Eos % (Auto) % Baso % (Auto) % Neut # (Auto) (1.4-6.5) K/uL Lymph # (Auto) (1.2-3.4) K/uL [place] # (Auto) (0.24-0.82) K/uL Eos # (Auto) (0-0.50) K/uL Baso # (Auto) (0-0.2) K/uL Immature Gran # (Auto) (0.00-0.02) K/uL POC Sodium (135-144) mmol/L Sodium (136-145) mmol/L POC Potassium (3.3-5.0) mmol/L Potassium (3.5-5.1) mmol/L POC Chloride (101-112) mmol/L Chloride (98-107) mmol/L Carbon Dioxide (21-32) mmol/L POC Total CO2 (24-31) mmol/L Anion Gap (3-11) POC Anion Gap (16-25) mmol/L POC BUN (7-18) mg/dl BUN (6-23) mg/dl Creatinine (0.6-1.4) mg/dl POC Creatinine (0.6-1.3) mg/dl Est Cr Clr Drug Dosing ml/min Est GFR ( Amer) ml/min Est GFR (Non-Af Amer) ml/min BUN/Creatinine Ratio (10-20) Glucose (70-99(Fasting)) mg/dl POC Glucose (other) (70-99) mg/dl Calcium (8.5-10.1) mg/dl POC Ioniz Calcium Sheila (1.12-1.32) mmol/l Total Bilirubin (0.2-1.0) mg/dl AST (13-39) U/L ALT (7-52) U/L Alkaline Phosphatase (34-104) U/L Troponin I High Sens (0-20) pg/ml Total Protein (6.0-8.3) gm/dl Albumin (3.4-5.0) gm/dl Globulin (2.5-4.0) gm/dl Albumin/Globulin Ratio (0.9-2) Lipase (11-82) U/L Urine Color Yellow Urine Appearance Clear (Clear) Urine pH 5.0 (4.5-7.5) Ur Specific [place] 1.025 (1.000-1.030) Urine Protein Negative (Negative) Urine Glucose (UA) Negative (Negative) Urine Ketones Negative (Negative) Urine Blood 3+ H (Negative) Urine Nitrite Negative (Negative) Urine Bilirubin Negative (Negative) Urine Urobilinogen Negative (Negative) Ur Leukocyte Esterase Negative (Negative) Urine WBC (Auto) 1-5 (0-5) /hpf Urine RBC (Auto) 5-10 H (0-4) /hpf U Hyaline Cast (Auto) 1-5 (0-5) /lpf U Epithel Cells (Auto) 0-5 (0-5) /lpf Urine Bacteria (Auto) Negative (Negative) Administered Medications Discontinued Medications Aspirin (Aspirin Chew 324 Mg) 243 mg PO NOW STA Stop: 02/09/22 20:56 Last Admin: 02/09/22 21:09 Dose: 243 mg Documented By: THERON Sodium Chloride (Nss 1000ml) 1,000 mls @ 999 mls/hr IV .Q1H1M ONE Stop: 02/09/22 21:56 Last Infusion: 02/09/22 22:12 Dose: 0 mls/hr Documented By: Admin: 02/09/22 21:10 Dose: 999 mls/hr Documented By: THERON Ioversol (Optiray 300 100ml) 100 ml IV ONCE ONE Stop: 02/09/22 20:26 Last Admin: 02/09/22 20:25 Dose: 91 ml Documented By: JESSICA Morphine Sulfate (Morphine Sulfate 4 Mg/Ml 1 Ml Carp\Vial) 4 mg IV NOW STA Stop: 02/09/22 19:56 Last Admin: 02/09/22 20:30 Dose: 4 mg Documented By: THERON Ondansetron HCl (Ondansetron Inj 2 Mg/Ml 2 Ml Vial) 4 mg IV NOW STA Stop: 02/09/22 19:56 Last Admin: 02/09/22 20:30 Dose: 4 mg Documented By: THREON Discharge Plan Visit Data Chief Complaint: Cardiac Assessment Stated Complaint: CHEST DISCOMFORT ED Provider: Frank Chau Discharge Problem: Renal colic on right side, Acute right flank pain, Hematuria, History of MD (myocardial infarction), Elevated troponin Patient Disposition: Admitted As Inpatient Forms Stand Alone Forms: [facility] Prescriptions Prescriptions: No Action fluvoxamine 100 mg tablet 100 mg PO BID Qty: 180 1RF diclofenac sodium 75 mg tablet,delayed release (DR/EC) 75 mg PO BID acetaminophen [Tylenol Extra Strength] 500 mg Tablet 1,000 mg PO Q6H PRN (Reason: Pain) prednisone 20 mg PO 1XD lisinopril [Zestril] 5 mg Tablet 5 mg PO QAM 30 Days Qty: 30 0RF Brilinta 90 mg Tablet 90 mg PO BID 60 Days Qty: 120 0RF metoprolol succinate 50 mg tablet extended release 24 hr 50 mg PO DAILY Qty: 30 0RF aspirin 81 mg Tablet,Delayed Release (Dr/Ec) 81 mg PO QAM 30 Days Qty: 30 0RF rosuvastatin [Crestor] 20 mg Tablet 20 mg PO QAM 30 Days Qty: 30 0RF Referrals Referrals: Murtaza Sharma MD [Primary Care Provider] -
[2022-02-09] MEDS ORDERED: ONDANSETRON INJ 2 MG/ML 2 ML VIAL IV STA (19:55)
[2022-02-09] MEDS ORDERED: MoRPHine SULFATE 4 MG/ML 1 ML CARP\\VIAL IV STA (19:55)
[2022-02-09 20:09] LABS: Basophils # (auto) 0.02 K/uL (0-0.2); Basophils % (auto) 0.2 %; Eosinophils # (auto) 0.17 K/uL (0-0.50); Eosinophils % (auto) 1.9 %; Hematocrit (blood only) 43.9 % (40.1-51.0); Hemoglobin 14.7 g/dl (14.0-18.0); Immature Granulocytes # (auto) 0.04 K/uL (0.00-0.02); Immature Granulocytes % (auto) 0.4 %; Lymphocytes # (auto) 2.05 K/uL (1.2-3.4); Lymphocytes % (auto) 22.4 %; Mean Corpuscular Hgb Conc 33.5 g/dL (32.0-36.0); Mean Corpuscular Volume 92.6 fL (80.0-100.0); Mean Platelet Volume 10.4 fL (9.4-12.4); Monocytes # (auto) 0.82 K/uL (0.24-0.82); Neutrophils # (auto) 6.05 K/uL (1.4-6.5); Neutrophils % (auto) 66.1 %; Platelet Count 234 K/uL (130-400); RDW Standard Deviation 41.7 fL (36.4-46.3); Red Blood Count 4.74 M/uL (4.63-6.08); White Blood Count 9.15 K/ul (4.8-10.8)
[2022-02-09 20:19] LABS: iSTAT Creatinine 1.6 mg/dl (0.6-1.3); iSTAT Hemoglobin 15.3 g/dl (14.0-18.0); iSTAT Ionized Calcium 1.23 mmol/l (1.12-1.32); iSTAT Potassium 3.9 mmol/L (3.3-5.0)
[2022-02-09] MEDS ORDERED: OPTIRAY 300 100mL IV ONE (20:25)
[2022-02-09 20:30] LABS: Albumin Globulin Ratio 1.7 (0.9-2); Albumin Level 4.5 gm/dl (3.4-5.0); BUN Creatinine Ratio 20.8 (10-20); Bilirubin,Total 0.4 mg/dl (0.2-1.0); Calcium 9.9 mg/dl (8.5-10.1); Creatinine Clr Calc Pharmacy 53.3 ml/min; Est GFR (African American) 55.9 ml/min; Est GFR (Non-African American) 48.2 ml/min; Globulin 2.6 gm/dl (2.5-4.0); Potassium 3.9 mmol/L (3.5-5.1); Total Protein 7.1 gm/dl (6.0-8.3)
[2022-02-09 20:41] LABS: Troponin I High Sensitivity 680.9 pg/ml (0-20)
[2022-02-09] MEDS ORDERED: ASPIRIN CHEW 324 MG PO STA (20:55)
[2022-02-09] MEDS ORDERED: SODIUM CHLORIDE 0.9% 1000ML 1,000 ML IV ONE (20:56)
[2022-02-09 21:15] LABS: Appearance Urine Clear (Clear); Bacteria Urine Automated Negative (Negative); Bilirubin Urine Negative (Negative); Blood Urine 3+ (Negative); Color Urine Yellow; Epithelial Cell Urine Auto 0-5 /lpf (0-5); Glucose Urine UA Negative (Negative); Ketones Urine Negative (Negative); Leukocyte Esterase Urine Negative (Negative); Nitrite Urine Negative (Negative); Protein Urine Negative (Negative); Specific Gravity Urine 1.025 (1.000-1.030); Urobilinogen Urine Negative (Negative)
[2022-02-09] MEDS ORDERED: fluvoxaMINE MALEATE 50 MG TAB PO STA (23:39)
[2022-02-09] MEDS ORDERED: METOPROLOL SUCC 50MG EXT REL TAB PO STA (23:39)
[2022-02-09] MEDS ORDERED: TAMSULOSIN HCL 0.4 MG CAP PO ONE (23:39)
[2022-02-09] MEDS ORDERED: TICAGRELOR 90 MG TAB PO SCH (23:45)
--- NOTE | 2022-02-09 23:57 | History & Physical Report ---
Date of Service February 09, 2022 Assessment & Plan (1) Renal colic on right side: Plan: Patient with right sided obstructing nephrolithiasis with hydroureter and hydronephrosis. No infection or bacteriuria on UA. Stone is 3.3 x 2.8mm and located in the distal ureter. Will hopefully pass with supportive care. -Pain control with morphine PRN -Nausea control with Zofran PRN -Colace, Miralax PRN -Flomax x 0.4mg now -Strain urine -IVF (2) CAD (coronary artery disease): Plan: Patient with CAD s/p NSTEMI on 02/03/22. He had a cardiac catheterization which revealed multivessel disease, 100% occlusion of ostial OM2 s/p ALISON x 1. He is on DAPT with ASA and Brillinta as well as Metoprolol, Lisinopril and Crestor. He is adherent to his medications and has not missed any of his antiplatelet agents. He denies chest pain, palpitations or symptoms of failure. Troponin tonight is higher than previous - 680.9 from 457.6. No EKG changes to suggest ischemia. Recent intervention, mild renal dysfunction may explain elevation of troponin -Telemetry monitoring -Trend troponin -Continue ASA, Brillinta and Metoprolol -Continue Crestor (3) DAYANNA (acute kidney injury): Plan: Patient with mild stage-I DAYANNA (Cr of 0.92 --> 1.49). Recent catheterization, initiation of Lisinopril and hospital stay could be contributing factors. He r eports urinating without difficulty. -IVF with LR at 125mL/hr -Repeat chemistry in AM -Will hold Lisinopril for now -Avoid nephrotoxic agents -Renal dosing where needed (4) Hyperlipidemia: Plan: Chronic. Stable -Continue Crestor (5) Anxiety: Plan: Chronic. Stable -Continue Fluvoxamine 100mg po BID (6) Polymyalgia rheumatica: Plan: Chronic. Stable. Patient is on prednisone daily -Continue F/E/N - LR at 125mL/hr x 2L, electrolytes WNL, AHA diet as tolerated Ppx - Low risk for DVT Code - Full Dispo - Admit to medical with telemetry History of Present Illness Chief Complaint: right flank pain Primary Care Provider: Murtaza Sharma MD Farhat Rueda is a pleasant 66yo male with history of CAD s/p NSTEMI 02/03/22 s/p cardiac catheterization which revealed multivessel CAD, 100% occlusion of ostial OM2 s/p ALISON x 1 to OM2. Patient on DAPT presently with ASA and Brillinta as well as Metoprolol, Lisinopril and Crestor. He has been doing well and denies any further chest pain, palpitations, edema, orthopnea. He presents today with right flank pain that started 02/09/22 at appx 18:00. Pain is severe, 10/10, radiating from back to right flank into the right testicle. He has associated nausea with vomiting. Denies fever, chills, dysuria. He has had a chronic cough for the last two weeks, has tested NEGATIVE for Covid on several occasions. In the ER, afebrile, HD stable, NAD. ER Course: ASA 324mg, Morphine, Zofran, NSS Allergies Allergy/AdvReac Type Severity Reaction Status Date / Time No Known Allergies Allergy Verified 02/03/22 02:38 Home Medications Medication Instructions Recorded Confirmed Type diclofenac sodium 75 mg 75 mg PO BID 04/26/19 02/09/22 History tablet,delayed release acetaminophen 500 mg tablet 1,000 mg PO Q6H PRN Pain 01/25/21 02/09/22 History (Tylenol Extra Strength) fluvoxamine 100 mg tablet 100 mg PO BID #180 tabs 10/16/21 02/09/22 Rx prednisone 20 mg PO 1XD 02/03/22 02/09/22 History aspirin 81 mg tablet,delayed 81 mg PO QAM 30 days #30 tabs 02/04/22 02/09/22 Rx release lisinopril 5 mg tablet (Zestril) 5 mg PO QAM 30 days #30 tabs 02/04/22 02/09/22 Rx metoprolol succinate 50 mg 50 mg PO DAILY #30 tabs 02/04/22 02/09/22 Rx tablet,extended release 24 hr rosuvastatin 20 mg tablet (Crestor) 20 mg PO QAM 30 days #30 tabs 02/04/22 02/09/22 Rx ticagrelor 90 mg tablet (Brilinta) 90 mg PO BID 60 days #120 tabs 02/04/22 02/09/22 Rx Past Med/Surg History Medical History Anxiety Back pain, lumbosacral Carpal tunnel syndrome Chronic pain syndrome Claustrophobia Fibromyalgia History of COVID-19 07/01/20 [facility]; cough, sob, fever, fatigue, chills, sore throat, loss of taste/smell; reports all symptoms resolved aside from loss of taste/smell History of kidney stones Hyperlipidemia HX Left lumbar radiculopathy Lumbar disc prolapse with compression radiculopathy Lumbar spinal stenosis OCD (obsessive compulsive disorder) Panic anxiety syndrome Pre-diabetes Rheumatoid arthritis Surgical History History of colonoscopy History of surgical removal of ganglion cyst Hx of vasectomy S/P epidural steroid injection 01/2021 Family History Uncle Myocardial infarction Mother Coronary heart disease Other No family history of adverse response to anesthesia Denies family history of Ovarian cancer Prostate cancer Breast cancer Lung cancer Colorectal cancer Social History Smoking Status: Never smoker Second Hand Exposure: No; Hx Alcohol Use: Yes Alcohol type: wine Hx Substance Use: No Preferred Language: Tamazight Communication Ability: Effective Visual Impairment: No Limitations Hearing Ability: Normal 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 Beliefs That Will Affect Care: None marital status: Current Living Situation: Spouse current occupational status: retired Feels Safe at Home: Yes Childhood Exposure to Second-Hand Smoke: No Diet Comment: regular caffeine: Yes during the past year weight has: remained stable Dental Care, Regularly: Yes Physical Activity Frequency: Daily Physical Activity Frequency Comment: States active at home Seatbelt Use: always Sunscreen Use: Yes Assistive Devices: Cane and Glasses Review of Systems Review of Systems: All systems reviewed & are unremarkable except as noted in HPI & below Physical Exam Physical Exam: General: patient resting comfortably, NAD, non-toxic in appearance, AA&O x 4 Skin: warm, dry, intact, no rashes or lesions HEENT: NC/AT, PERRL, EOMI, anicteric sclera, conjunctiva without injection, external ear normal to inspection and nontender, nares patent, moist mucus membranes, dentition intact, no oropharyngeal lesions, neck supple, trachea midline, no LAD, no thyromegaly, no JVD Heart: +S1/S2, regular, no m/r/g Lungs: equal air entry bilaterally, no rales/rhonchi/wheezes Abd: +BS, soft, ND, mild RLQ abdominal discomfort without rebound/guarding, right flank pain present, no masses/organomegaly/ascites Ext: warm, 2+ pulses in UE/LE bilaterally, no clubbing/cyanosis or edema Neuro: nonfocal, patient AA&O x 4, speech intact, no facial droop, moving all extremities on command with equal strength 5/5 Results & Data Results & Data ([facility]) Vital Signs (Past 12 Hours) Vital Signs Temp Pulse Resp BP Pulse Ox O2 Del Method 02/09/22 23:24 79 19 99 Room Air 02/09/22 23:00 67 17 98 Room Air 02/09/22 23:00 134/58 L Room Air 02/09/22 22:50 66 16 99 Room Air 02/09/22 22:40 68 10 L 99 Room Air 02/09/22 22:30 67 18 Room Air 02/09/22 22:30 124/72 Room Air 02/09/22 22:20 73 27 H Room Air 02/09/22 22:10 76 12 Room Air 02/09/22 22:05 67 19 Room Air 02/09/22 21:40 67 17 99 Room Air 02/09/22 21:30 65 15 98 Room Air 02/09/22 21:30 135/75 Room Air 02/09/22 21:20 74 15 98 Room Air 02/09/22 21:10 24 98 02/09/22 21:09 51 L 17 99 Room Air 02/09/22 21:09 125/79 Room Air 02/09/22 21:00 50 L 18 99 Room Air 02/09/22 21:00 130/74 Room Air 02/09/22 20:59 67 100 Room Air 02/09/22 20:10 63 26 H Room Air 02/09/22 20:00 69 27 H Room Air 02/09/22 19:50 67 18 Room Air 02/09/22 19:48 67 21 Room Air 02/09/22 21:11 Room Air 02/09/22 19:37 36.7 C 63 18 147/85 H 97 Room Air Laboratory Results Laboratory Results WBC 9.15 K/ul (4.8-10.8) 02/09/22 19:56 RBC 4.74 M/uL (4.63-6.08) 02/09/22 19:56 Hgb 14.7 g/dl (14.0-18.0) 02/09/22 19:56 POC Hgb 15.3 g/dl (14.0-18.0) 02/09/22 20:06 Hct 43.9 % (40.1-51.0) 02/09/22 19:56 POC Hct 45 % (42-52) 02/09/22 20:06 MCV 92.6 fL (80.0-100.0) 02/09/22 19:56 MCH 31.0 pg (25.0-34.0) 02/09/22 19:56 MCHC 33.5 g/dL (32.0-36.0) 02/09/22 19:56 RDW Std Deviation 41.7 fL (36.4-46.3) 02/09/22 19:56 RDW Coeff of Casey 12.0 % (11.5-14.5) 02/09/22 19:56 Plt Count 234 K/uL (130-400) 02/09/22 19:56 MPV 10.4 fL (9.4-12.4) 02/09/22 19:56 Immature Gran % (Auto) 0.4 % 02/09/22 19:56 Neut % (Auto) 66.1 % 02/09/22 19:56 Lymph % (Auto) 22.4 % 02/09/22 19:56 [place] % (Auto) 9.0 % 02/09/22 19:56 Eos % (Auto) 1.9 % 02/09/22 19:56 Baso % (Auto) 0.2 % 02/09/22 19:56 Neut # (Auto) 6.05 K/uL (1.4-6.5) 02/09/22 19:56 Lymph # (Auto) 2.05 K/uL (1.2-3.4) 02/09/22 19:56 [place] # (Auto) 0.82 K/uL (0.24-0.82) 02/09/22 19:56 Eos # (Auto) 0.17 K/uL (0-0.50) 02/09/22 19:56 Baso # (Auto) 0.02 K/uL (0-0.2) 02/09/22 19:56 Immature Gran # (Auto) 0.04 K/uL (0.00-0.02) H 02/09/22 19:56 POC Sodium 138 mmol/L (135-144) 02/09/22 20:06 Sodium 137 mmol/L (136-145) 02/09/22 19:56 POC Potassium 3.9 mmol/L (3.3-5.0) 02/09/22 20:06 Potassium 3.9 mmol/L (3.5-5.1) 02/09/22 19:56 POC Chloride 102 mmol/L (101-112) 02/09/22 20:06 Chloride 101 mmol/L (98-107) 02/09/22 19:56 Carbon Dioxide 26 mmol/L (21-32) 02/09/22 19:56 POC Total CO2 24 mmol/L (24-31) 02/09/22 20:06 Anion Gap 10 (3-11) 02/09/22 19:56 POC Anion Gap 17.0 mmol/L (16-25) 02/09/22 20:06 POC BUN 31 mg/dl (7-18) H 02/09/22 20:06 BUN 31 mg/dl (6-23) H 02/09/22 19:56 Creatinine 1.49 mg/dl (0.6-1.4) H 02/09/22 19:56 POC Creatinine 1.6 mg/dl (0.6-1.3) H 02/09/22 20:06 Est Cr Clr Drug Dosing 53.3 ml/min 02/09/22 19:56 Est GFR ( Amer) 55.9 ml/min 02/09/22 19:56 Est GFR (Non-Af Amer) 48.2 ml/min 02/09/22 19:56 BUN/Creatinine Ratio 20.8 (10-20) H 02/09/22 19:56 Glucose 103 mg/dl (70-99(Fasting)) H 02/09/22 19:56 POC Glucose (other) 108 mg/dl (70-99) H 02/09/22 20:06 Calcium 9.9 mg/dl (8.5-10.1) 02/09/22 19:56 POC Ioniz Calcium Sheila 1.23 mmol/l (1.12-1.32) 02/09/22 20:06 Total Bilirubin 0.4 mg/dl (0.2-1.0) 02/09/22 19:56 AST 22 U/L (13-39) 02/09/22 19:56 ALT 15 U/L (7-52) 02/09/22 19:56 Alkaline Phosphatase 92 U/L (34-104) 02/09/22 19:56 Troponin I High Sens 680.9 pg/ml (0-20) H* D 02/09/22 19:56 Total Protein 7.1 gm/dl (6.0-8.3) 02/09/22 19:56 Albumin 4.5 gm/dl (3.4-5.0) 02/09/22 19:56 Globulin 2.6 gm/dl (2.5-4.0) 02/09/22 19:56 Albumin/Globulin Ratio 1.7 (0.9-2) 02/09/22 19:56 Lipase 37 U/L (11-82) 02/09/22 19:56 Urine Color Yellow 02/09/22 21:00 Urine Appearance Clear (Clear) 02/09/22 21:00 Urine pH 5.0 (4.5-7.5) 02/09/22 21:00 Ur Specific [place] 1.025 (1.000-1.030) 02/09/22 21:00 Urine Protein Negative (Negative) 02/09/22 21:00 Urine Glucose (UA) Negative (Negative) 02/09/22 21:00 Urine Ketones Negative (Negative) 02/09/22 21:00 Urine Blood 3+ (Negative) H 02/09/22 21:00 Urine Nitrite Negative (Negative) 02/09/22 21:00 Urine Bilirubin Negative (Negative) 02/09/22 21:00 Urine Urobilinogen Negative (Negative) 02/09/22 21:00 Ur Leukocyte Esterase Negative (Negative) 02/09/22 21:00 Urine WBC (Auto) 1-5 /hpf (0-5) 02/09/22 21:00 Urine RBC (Auto) 5-10 /hpf (0-4) H 02/09/22 21:00 U Hyaline Cast (Auto) 1-5 /lpf (0-5) 02/09/22 21:00 U Epithel Cells (Auto) 0-5 /lpf (0-5) 02/09/22 21:00 Urine Bacteria (Auto) Negative (Negative) 02/09/22 21:[address] Abdomen per STAT-rad: Asymmetric right perinephric stranding and delayed cortical nephrogram. Mild diffuse right hydroureter to the level of the obstructing 3.3 x 2.8mm calculus in the distal right ureter, just proximal to the ureteropelvic junction. Urinary bladder is unremarkable. Left kidney and ureters unremarkable. ECG Additional Comments: NSR at 64, normal axis, MT=599, QRS=78, Fpl=516, no acute ischemic changes. Code Status & VTE Plan VTE Prophylaxis Plan VTE Prophylaxis will be ordered: No PG Care Time/CCT Total # of Minutes Spent Total Time Spent with Patient: Total time spent is greater than 50% in coordination of care (as documented) at patient's floor/unit and/or counseling patient: Coding Level of Care Code 95317 Initial Inpt Care Lvl 2 Diagnoses Renal colic on right side N23 CAD (coronary artery disease) I25.10 DAYANNA (acute kidney injury) N17.9 Hyperlipidemia E78.00; E78.0 Hyperlipidemia type: pure hypercholesterolemia Anxiety F41.9 Polymyalgia rheumatica M35.3 (1) Hyperlipidemia Hyperlipidemia type: pure hypercholesterolemia Qualified Code(s): E78.00 - Pure hypercholesterolemia, unspecified; E78.0 - Pure hypercholesterolemia
[2022-02-10] MEDS: LACTATED RINGER'S 1,000 ML IV SCH ×2 (00:27→07:50)
[2022-02-10] MEDS ORDERED: DOCUSATE SODIUM 100 MG CAP PO PRN (02:21)
[2022-02-10] MEDS ORDERED: POLYETHYLENE (MIRALAX) 17 GM PACK PO PRN (02:21)
[2022-02-10] MEDS ORDERED: MoRPHine SULFATE 4 MG/ML 1 ML CARP\\VIAL IV PRN (02:21)
[2022-02-10] MEDS ORDERED: ONDANSETRON INJ 2 MG/ML 2 ML VIAL IV PRN (02:21)
[2022-02-10 07:15] LABS: Basophils # (auto) 0.03 K/uL (0-0.2); Basophils % (auto) 0.5 %; Eosinophils # (auto) 0.13 K/uL (0-0.50); Eosinophils % (auto) 2.2 %; Hematocrit (blood only) 37.5 % (40.1-51.0); Hemoglobin 12.8 g/dl (14.0-18.0); Immature Granulocytes # (auto) 0.01 K/uL (0.00-0.02); Immature Granulocytes % (auto) 0.2 %; Lymphocytes # (auto) 0.92 K/uL (1.2-3.4); Lymphocytes % (auto) 15.4 %; Mean Corpuscular Hemoglobin 31.5 pg (25.0-34.0); Mean Corpuscular Hgb Conc 34.1 g/dL (32.0-36.0); Mean Corpuscular Volume 92.4 fL (80.0-100.0); Monocytes % (auto) 11.7 %; Platelet Count 179 K/uL (130-400); RDW Coefficient of Variation 12.2 % (11.5-14.5); RDW Standard Deviation 41.9 fL (36.4-46.3); Red Blood Count 4.06 M/uL (4.63-6.08); White Blood Count 5.99 K/ul (4.8-10.8)
[2022-02-10 07:48] LABS: BUN Creatinine Ratio 22.8 (10-20); Calcium 8.6 mg/dl (8.5-10.1); Creatinine Clr Calc Pharmacy 78.7 ml/min; Est GFR (African American) 89.4 ml/min; Est GFR (Non-African American) 77.1 ml/min; Potassium 3.8 mmol/L (3.5-5.1)
[2022-02-10 08:12] LABS: Troponin I High Sensitivity 615.9 pg/ml (0-20)
--- NOTE | 2022-02-10 09:00 | CT Scan Report ---
CT SCAN OF THE ABDOMEN AND PELVIS WITH IV CONTRAST CLINICAL HISTORY: Epigastric abdominal pain. Right-sided abdominal/flank pain. COMPARISON STUDY: Abdominal CT dated 01/25/2021 TECHNIQUE: Following the IV administration of 91 cc of Optiray 320, CT scan of the abdomen and pelvi s is performed from the lung bases to the proximal femora. Images are reviewed in the axial, sagittal , and coronal planes. IV contrast was administered without complication. A dose lowering technique wa s utilized adhering to the principles of ALARA. CT DOSE: 539.03 mGy.cm FINDINGS: Lung bases: The heart is normal in size and without pericardial effusion. The lung bases are clear. Liver: The contrast-enhanced liver is normal in size, contour, and attenuation. There is no intrahepa tic biliary ductal dilatation. The hepatic veins and portal veins are patent. Gallbladder: Unremarkable. Spleen: Normal in size and attenuation. Pancreas: Unremarkable. Adrenal glands: Unremarkable. Kidneys: The contrast enhanced kidneys are normal in size there is a 4 mm obstructing calculus in the distal right ureter seen on image #20 and 41. This is located just above the vesicoureteral junction and causes moderate right hydroureteronephrosis. There is heterogeneously diminished enhancement of the right kidney as compared to the left. No additional renal calculi are clearly identified on this contrast-enhanced examination. There is no left-sided hydronephrosis. A subcentimeter cortical hypode nsity arising from the right upper pole likely represents a cyst but is too small for definitive cate acterization. Renal sinus cysts are noted on the left. Abdominal vasculature: The abdominal aorta is normal in course and caliber noting moderate atheroscle rotic calcification. Bowel: The small bowel and colon are normal in course and caliber. The appendix is well-visualized a nd normal. Peritoneum: There is no intraperitoneal free air or abdominal ascites. There is a fat-containing umbi lical hernia. Lymphadenopathy: None. Pelvic viscera: The bladder, prostate, and seminal vesicles are normal as visualized. Skeletal structures: There is moderate lumbosacral spondylosis. No lytic or blastic lesions are seen. IMPRESSION: 1. There is a 4 mm obstructing distal right ureteral calculus. This causes moderate right hydroureter onephrosis. 2. No additional renal calculi are clearly identified on this contrast-enhanced examination. 3. Heterogeneously diminished enhancement of the right kidney is likely related to obstruction/hydron ephrosis. Correlate with clinical findings and urinalysis for evidence of superimposed urinary tract infection. 4. Additional findings as above. ACT 112: Negative or not required by law. Electronically signed by: Ba Galan M.D. 02/10/2022 8:59 AM
[2022-02-10] MEDS: ASPIRIN 81 MG ECTAB PO SCH (09:06)
[2022-02-10] MEDS: ROSUVASTATIN CALCIUM 20 MG TAB PO SCH (09:06)
[2022-02-10] MEDS: predniSONE 20 MG TAB PO SCH (09:06)
[2022-02-10] MEDS: TICAGRELOR 90 MG TAB PO SCH ×2 (09:06→19:55)
[2022-02-10] MEDS: fluvoxaMINE MALEATE 50 MG TAB PO SCH ×2 (09:06→20:03)
--- NOTE | 2022-02-10 09:20 | Hospitalist Progress Note ---
Date of Service February 10, 2022 Assessment & Plan (1) Renal colic on right side: Plan: Patient with right sided obstructing nephrolithiasis with hydroureter and hydronephrosis. No infection or bacteriuria on UA. Stone is 3.3 x 2.8mm and located in the distal ureter. Will hopefully pass with supportive care. -Pain control with morphine PRN -Nausea control with Zofran PRN -Colace, Miralax PRN -Flomax x 0.4mg now -Strain urine -IVF (2) CAD (coronary artery disease): Plan: Patient with CAD s/p NSTEMI on 02/03/22. He had a cardiac catheterization which revealed multivessel disease, 100% occlusion of ostial OM2 s/p ALISON x 1. He is on DAPT with ASA and Brillinta as well as Metoprolol, Lisinopril and Crestor. He is adherent to his medications and has not missed any of his antiplatelet agents. He denies chest pain, palpitations or symptoms of failure. No EKG changes to suggest ischemia. Recent intervention, mild renal dysfunction may explain elevation of troponin -Trend troponin 600-600-300 -Continue ASA, Brillinta and Metoprolol -Continue Crestor (3) DAYANNA (acute kidney injury): Plan: Patient with mild stage-I DAYANNA (Cr of 0.92 --> 1.49). Recent catheterization, initiation of Lisinopril and hospital stay could be contributing factors. He reports urinating without difficulty. -IVF with LR at 125mL/hr hold Lisinopril -Avoid nephrotoxic agents -Renal dosing where needed (4) Hyperlipidemia: Plan: Chronic. Stable -Continue Crestor (5) Anxiety: Plan: Chronic. Stable -Continue Fluvoxamine 100mg po BID (6) Polymyalgia rheumatica: Plan: Chronic. Stable. Patient is on prednisone daily -Continue, no stress dose at this time continue on ivf Ppx - Low risk for DVT Code - Full Dispo - Admit to medical with telemetry Admission and Anticipated Discharge Date Admission Date: February 09, 2022 Subjective pt resting comfortably but still with crampy right sided pain cw renal colic, no hematuria at this time Review of Systems Review of Systems: Mild distress and fatigue no headache, no visual changes no speech or swallowing issues no chest pain, pressure or palpitations no shortness of breath, cough or wheezes right sided crampy abdominal pain, no nausea or vomiting no dysuria, hematuria or frequency no focal joint pain or swelling no back pain, mild right CVA tenderness, no radicular pain no bruising, bleeding or rashes no focal signs of weakness or numbness or altered sensation no complaints of anxiety or depression.. Physical Exam Physical Exam: The patient appeared comfortable Vital signs as documented. Head exam is normocephalic atraumatic Neck is without JVD, thyromegaly, or carotid bruits. Lungs are clear to auscultation, no focal loss of breath sounds Cardiac exam, Rhythm is regular.. No murmurs, rubs or gallops. Abdominal exam reveals normal bowel sounds, soft non tender, no masses Extremities are nonedematous and both pedal pulses are present Neurologic exam is alert and oriented, no focal loss of strength or sensation Skin is without bruises or rashes Psychologically is without concerns for anxiety or depression.. Results & Data Results & Data ([facility]) Vital Signs (Past 12 Hours) Vital Signs Temp Pulse Pulse Resp BP BP Pulse Ox 02/10/22 07:53 97.5 F L 65 20 112/29 L 98 02/10/22 04:00 67 18 110/52 L 95 02/10/22 02:00 77 18 118/77 98 02/10/22 01:00 59 L 18 99/45 L 97 02/10/22 00:00 70 16 107/55 L 96 02/10/22 00:28 62 18 112/64 94 02/09/22 23:24 79 19 99 02/09/22 23:00 67 17 98 02/09/22 23:00 134/58 L 02/09/22 22:50 66 16 99 02/09/22 22:40 68 10 L 99 02/09/22 22:30 67 18 02/09/22 22:30 124/72 02/09/22 22:20 73 27 H 02/09/22 22:10 76 12 02/09/22 22:05 67 19 02/09/22 21:40 67 17 99 02/09/22 21:30 65 15 98 02/09/22 21:30 135/75 02/09/22 21:20 74 15 98 O2 Del Method 02/10/22 07:53 02/10/22 04:00 02/10/22 02:00 02/10/22 01:00 02/10/22 00:00 02/10/22 00:28 Room Air 02/09/22 23:24 Room Air 02/09/22 23:00 Room Air 02/09/22 23:00 Room Air 02/09/22 22:50 Room Air 02/09/22 22:40 Room Air 02/09/22 22:30 Room Air 02/09/22 22:30 Room Air 02/09/22 22:20 Room Air 02/09/22 22:10 Room Air 02/09/22 22:05 Room Air 02/09/22 21:40 Room Air 02/09/22 21:30 Room Air 02/09/22 21:30 Room Air 02/09/22 21:20 Room Air PG Care Time/CCT Total # of Minutes Spent Total Time Spent with Patient: Total time spent is greater than 50% in coordination of care (as documented) at patient's floor/unit and/or counseling patient: Coding Level of Care Code 05168 Subseq Hosp Care Lvl 2 Diagnoses Renal colic on right side N23 CAD (coronary artery disease) I25.10 DAYANNA (acute kidney injury) N17.9 Hyperlipidemia E78.00; E78.0 Hyperlipidemia type: pure hypercholesterolemia Anxiety F41.9 Polymyalgia rheumatica M35.3 (1) Hyperlipidemia Hyperlipidemia type: pure hypercholesterolemia Qualified Code(s): E78.00 - Pure hypercholesterolemia, unspecified; E78.0 - Pure hypercholesterolemia
--- NOTE | 2022-02-10 09:22 | Electrocardiogram Report ---
Test Reason : Blood Pressure : / mmHG Vent. Rate : 064 BPM Atrial Rate : 064 BPM P-R Int : 164 ms QRS Dur : 078 ms QT Int : 400 ms P-R-T Axes : 067 006 072 degrees QTc Int : 412 ms Normal sinus rhythm Normal ECG When compared with ECG of 04-FEB-2022 05:19, T wave inversion no longer evident in Inferior leads Nonspecific T wave abnormality now evident in Lateral leads Confirmed by Pierce Foss ([id number]) on 02/10/2022 9:22:04 AM Referred By: Murtaza Sharma Confirmed By:Pierce Foss
[2022-02-10] MEDS: METOPROLOL SUCC 50MG EXT REL TAB PO SCH (19:55)
[2022-02-10] MEDS: TAMSULOSIN HCL 0.4 MG CAP PO SCH (19:55)
[2022-02-10] MEDS: NORMOSOL-R 1,000 ML IV SCH (19:58)
[2022-02-11] MEDS: NORMOSOL-R 1,000 ML IV SCH ×3 (03:49→18:22)
[2022-02-11] MEDS: fluvoxaMINE MALEATE 50 MG TAB PO SCH ×2 (07:35→21:54)
[2022-02-11] MEDS: predniSONE 20 MG TAB PO SCH (07:35)
[2022-02-11] MEDS: ROSUVASTATIN CALCIUM 20 MG TAB PO SCH (07:35)
[2022-02-11] MEDS: ASPIRIN 81 MG ECTAB PO SCH (07:35)
[2022-02-11] MEDS: TAMSULOSIN HCL 0.4 MG CAP PO SCH ×2 (07:36→21:54)
[2022-02-11] MEDS: TICAGRELOR 90 MG TAB PO SCH ×2 (07:36→21:54)
[2022-02-11] MEDS: ACETAMINOPHEN 500 MG TAB PO PRN ×2 (12:14→21:58)
--- NOTE | 2022-02-11 14:18 | Hospitalist Progress Note ---
Date of Service February 11, 2022 Assessment & Plan (1) Renal colic on right side: Plan: Patient with right sided obstructing nephrolithiasis with hydroureter and hydronephrosis. No infection or bacteriuria on UA. Stone is 3.3 x 2.8mm and located in the distal ureter. Will hopefully pass with supportive care. -Pain control with morphine PRN -Nausea control with Zofran PRN -Colace, Miralax PRN -Flomax x 0.4mg -Strain urine -IVF - Stone moving slightly. Patient would prefer to wait another 24 hours before discharge or getting urology involved. (2) CAD (coronary artery disease): Plan: Patient with CAD s/p NSTEMI on 02/03/22. He had a cardiac catheterization which revealed multivessel disease, 100% occlusion of ostial OM2 s/p ALISON x 1. He is on DAPT with ASA and Brillinta as well as Metoprolol, Lisinopril and Crestor. He is adherent to his medications and has not missed any of his antiplatelet agents. - Recent intervention, mild renal dysfunction may explain elevation of troponin -Trend troponin 600-600-300 -Continue ASA, Brillinta and Metoprolol -Continue Crestor (3) DAYANNA (acute kidney injury): Plan: Patient with mild stage-I DAYANNA (Cr of 0.92 --> 1.49). Recent catheterization, initiation of Lisinopril and hospital stay could be contributing factors. He reports urinating without difficulty. -IVF with LR at 125mL/hr hold Lisinopril -Avoid nephrotoxic agents -Renal dosing where needed -> Back to baseline on 02/11. (4) Hyperlipidemia: Plan: Chronic. Stable -Continue Crestor (5) Anxiety: Plan: Chronic. Stable -Continue Fluvoxamine 100mg po BID (6) Polymyalgia rheumatica: Plan: Chronic. Stable. Patient is on prednisone daily -Continue, no stress dose at this time Admission and Anticipated Discharge Date Admission Date: February 09, 2022 Subjective Still with significant pain in the right groin area. He feels the stone may have moved a bit down to the groin from more in the back region. Reports no fevers/chills, chest pain, shortness of breath, abdominal pain, nausea, or vomiting. Physical Exam Constitutional: WD/WN, vitals as above Eyes: EOM intact bilaterally; no conjunctival abnormality ENMT: external ear and nose normal, oropharynx normal Neck: trachea midline, no thyromegaly normal visual inspection Respiratory: normal respiratory effort, lungs clear to auscultation no respiratory distress Cardiovascular: RRR, no murmur, no edema Gastrointestinal (Abdomen): Inspection/Auscultation: abdomen normal to inspection; abdomen not distended Musculoskeletal: no cyanosis or clubbing, extremities motor strength 5/5 Skin: no rashes, warm and dry Neurologic: moves all extremities and awake Psychiatric: Orientation: alert, oriented to person and cooperative Results & Data Results & Data ([facility]) Vital Signs (Past 12 Hours) Vital Signs Temp Pulse Pulse Resp BP Pulse Ox O2 Del Method 02/11/22 07:35 37.1 C 71 18 91/59 L 90 Room Air 02/11/22 07:14 60 02/11/22 03:11 36.6 C 62 20 93/47 L 95 Room Air PG Care Time/CCT Total # of Minutes Spent Total Time Spent with Patient: Total time spent is greater than 50% in coordination of care (as documented) at patient's floor/unit and/or counseling patient: Coding Level of Care Code 09441 Subseq Hosp Care Lvl 2 Diagnoses Renal colic on right side N23 CAD (coronary artery disease) I25.10 DAYANNA (acute kidney injury) N17.9 Hyperlipidemia E78.00; E78.0 Hyperlipidemia type: pure hypercholesterolemia Anxiety F41.9 Polymyalgia rheumatica M35.3 (1) Hyperlipidemia Hyperlipidemia type: pure hypercholesterolemia Qualified Code(s): E78.00 - Pure hypercholesterolemia, unspecified; E78.0 - Pure hypercholesterolemia
[2022-02-11] MEDS: METOPROLOL SUCC 50MG EXT REL TAB PO SCH (21:54)
[2022-02-11] MEDS: MoRPHine SULFATE 2 MG/ML CARP IV PRN (21:59)
[2022-02-12] MEDS: NORMOSOL-R 1,000 ML IV SCH ×2 (02:23→10:20)
[2022-02-12 07:49] LABS: Hematocrit (blood only) 37.7 % (40.1-51.0); Hemoglobin 12.6 g/dl (14.0-18.0); Mean Corpuscular Hemoglobin 31.1 pg (25.0-34.0); Mean Corpuscular Hgb Conc 33.4 g/dL (32.0-36.0); Mean Corpuscular Volume 93.1 fL (80.0-100.0); Mean Platelet Volume 10.4 fL (9.4-12.4); Platelet Count 169 K/uL (130-400); RDW Standard Deviation 41.4 fL (36.4-46.3); Red Blood Count 4.05 M/uL (4.63-6.08); White Blood Count 6.66 K/ul (4.8-10.8)
[2022-02-12] MEDS: fluvoxaMINE MALEATE 50 MG TAB PO SCH (08:08)
[2022-02-12] MEDS: TAMSULOSIN HCL 0.4 MG CAP PO SCH (08:08)
[2022-02-12] MEDS: ROSUVASTATIN CALCIUM 20 MG TAB PO SCH (08:09)
[2022-02-12] MEDS: predniSONE 20 MG TAB PO SCH (08:09)
[2022-02-12] MEDS: TICAGRELOR 90 MG TAB PO SCH (08:09)
[2022-02-12] MEDS: ASPIRIN 81 MG ECTAB PO SCH (08:09)
[2022-02-12 08:37] LABS: BUN Creatinine Ratio 17.9 (10-20); Calcium 8.6 mg/dl (8.5-10.1); Creatinine Clr Calc Pharmacy 95.2 ml/min; Est GFR (African American) 105.7 ml/min; Est GFR (Non-African American) 91.2 ml/min; Magnesium 2.1 mg/dl (1.7-2.4); Potassium 3.8 mmol/L (3.5-5.1)
[2022-02-12] MEDS: MoRPHine SULFATE 2 MG/ML CARP IV PRN (09:27)
--- NOTE | 2022-02-12 13:03 | Urology Consultation ---
Date of Consultation February 12, 2022 Assessment & Plan (1) Calculus of distal right ureter: (2) Hydronephrosis: Plan 66 yo M admitted for right flank pain secondary to an obstructing 4 mm distal right ureteral stone with moderate right hydronephrosis. - Case discussed with Dr. Woody, urologist pickling solution maker. - CTAP 02/09 reviewed and shows a 4 mm distal right ureteral stone with moderate right hydronephrosis. - UA on admission was not suggestive of infection. - Pt remains afebrile, creatinine and WBC within normal limits and his pain seems to be well managed/tolerable at this time. - Discussed with patient that stone is a passable size. - No acute intervention planned at this time. - Given recent cardiac event, recommend continue max expulsion therapy and supportive care. - Ideally we would delay potential intervention until further out from cardiac event unless he clinically decompensates. - He is agreeable with this plan. - Recommend discharge with Tamsulosin and prn analgesia when medically stable. - Continue to strain urine. - Will arrange outpatient follow-up with our service for stone management. Thank you for allowing us to participate in the acute care of Mr. Rueda. Please reconsult us with additional questions, concerns or changes in patient st atus. Supervising Physician Co-Signing Physician Notes Discussed patient with NATY. Agree with plan. Given small distal stone and no concern for infection, recommend medical expulsive therapy, especially in the setting of recent OH. Risk of anesthesia would outweigh benefit of surgery. We can follow-up in an outpatient setting in several weeks to ensure passage of stone. History of Present Illness Reason for Consultation: Right kidney stone with hydro Requesting Physician: Dr. Simon Attending Physician: Sanchez Simon MD History of Present Illness 66 yo M with past medical history of prediabetes, hyperlipidemia, CAD, NSTEMI s/p cardiac catheterization and stent x 1 on 02/03/22 admitted for right flank pain secondary to an obstructing 4 mm distal right ureteral stone with moderate right hydronephrosis. Patient presented to [facility] ED on 02/09/22 with severe right flank pain. He was af ebrile on arrival. Lab work reviewed and showed a creatinine of 1.49, WBC 9.15, hemodynamically stable. Urinalysis showed 1-5 WBCs, 5-10 RBCs, negative for bacteria and nitrates. No urine culture collected. CTAP w/ IV con reviewed and showed an obstructing 4 mm distal right ureteral stone with moderate right hydronephrosis. ER course included IV fluids, Morphine and Zofran. Of note, patient had NSTEMI s/p cardiac catheterization and stent x 1 on 02/03/22. He was admitted to the hospitalist service for further evaluation and management. He has been on expulsive therapy and supportive care during admission to try to pass stone spontaneously. Urology consulted for evaluation of right kidney stone with hydronephrosis. Patient seen and examined at bedside this afternoon. He is awake, alert and sitting up at the side of the bed. He reports intermittent right groin pain, but currently comfortable. Denies stone passage. Voiding spontaneously without difficulty. No dysuria or hematuria. Notes some urinary urgency and frequency. No nausea or vomiting. No fever or chills. Offers no additional complaints. Chart review: Afebrile, lab work - creatinine 0.84, WBC 6.66, Hgb 12.6. hx reviewed: prior history of vasectomy and kidney stone with suspected spontaneous passage. No prior surgical intervention for stones. No family hx of stones. No personal hx of malignancy. Allergies Allergy/AdvReac Type Severity Reaction Status Date / Time No Known Allergies Allergy Verified 02/03/22 02:38 Home Medications Medication Instructions Recorded Confirmed Type diclofenac sodium 75 mg 75 mg PO BID 04/26/19 02/09/22 History tablet,delayed release acetaminophen 500 mg tablet 1,000 mg PO Q6H PRN Pain 01/25/21 02/09/22 History (Tylenol Extra Strength) fluvoxamine 100 mg tablet 100 mg PO BID #180 tabs 10/16/21 02/09/22 Rx prednisone 20 mg PO 1XD 02/03/22 02/09/22 History aspirin 81 mg tablet,delayed 81 mg PO QAM 30 days #30 tabs 02/04/22 02/09/22 Rx release lisinopril 5 mg tablet (Zestril) 5 mg PO QAM 30 days #30 tabs 02/04/22 02/09/22 Rx metoprolol succinate 50 mg 50 mg PO DAILY #30 tabs 02/04/22 02/09/22 Rx tablet,extended release 24 hr rosuvastatin 20 mg tablet (Crestor) 20 mg PO QAM 30 days #30 tabs 02/04/22 0 02/09/22 Rx ticagrelor 90 mg tablet (Brilinta) 90 mg PO BID 60 days #120 tabs 02/04/22 02/09/22 Rx Patient History Medical History Anxiety Back pain, lumbosacral Carpal tunnel syndrome Chronic pain syndrome Claustrophobia Fibromyalgia History of COVID-19 07/01/20 [facility]; cough, sob, fever, fatigue, chills, sore throat, loss of taste/smell; reports all symptoms resolved aside from loss of taste/smell History of kidney stones Hyperlipidemia HX Left lumbar radiculopathy Lumbar disc prolapse with compression radiculopathy Lumbar spinal stenosis OCD (obsessive compulsive disorder) Panic anxiety syndrome Pre-diabetes Rheumatoid arthritis Surgical History History of colonoscopy History of surgical removal of ganglion cyst Hx of vasectomy S/P epidural steroid injection 01/2021 Family History Uncle Myocardial infarction Mother Coronary heart disease Other No family history of adverse response to anesthesia Denies family history of Ovarian cancer Prostate cancer Breast cancer Lung cancer Colorectal cancer Social History Smoking Status: Never smoker Second Hand Exposure: No; Hx Alcohol Use: Yes Alcohol type: beer Hx Substance Use: No Preferred Language: Polish Communication Ability: Effective Visual Impairment: No Limitations Hearing Ability: Normal Nc Machinist Required: No Beliefs That Will Affect Care: None marital status: Current Living Situation: Spouse current occupational status: retired Feels Safe at Home: Yes Childhood Exposure to Second-Hand Smoke: No Diet Comment: regular caffeine: Yes during the past year weight has: remained stable Dental Care, Regularly: Yes Physical Activity Frequency: Daily Physical Activity Frequency Comment: States active at home Seatbelt Use: always Sunscreen Use: Yes Assistive Devices: Cane Review of Systems Review of Systems: All systems reviewed & are unremarkable except as noted in HPI & below Respiratory: no dyspnea Cardiovascular: no chest pain Physical Exam Constitutional: well developed and well nourished; no acute distress and not ill appearing Eyes: no scleral abnormality Neck: normal visual inspection Respiratory: normal respiratory effort and able to speak in complete sentences; no respiratory distress and no labored breathing Cardiovascular: Extremities: no pedal edema Gastrointestinal (Abdomen): Inspection/Auscultation: abdomen normal to inspection; abdomen not distended Musculoskeletal: Head/Neck/Chest: normocephalic and head atraumatic Extremities: extremities normal to inspection Skin: no visible skin rashes Neurologic: moves all extremities and awake Psychiatric: Orientation: alert and oriented x 3 Eye Contact: good eye contact Genitourinary: no CVA tenderness Results & Data ([facility]) Vital Signs (Past 12 Hours) Vital Signs Temp Pulse Pulse Resp BP Pulse Ox O2 Del Method 02/12/22 11:54 36.3 C L 64 18 111/69 98 Room Air 02/12/22 08:53 36.6 C 61 18 95/60 L 97 Room Air 02/12/22 07:21 55 L 02/12/22 02:17 36.6 C 58 L 18 101/57 L 95 Room Air Diagnostic Findings CT SCAN OF THE ABDOMEN AND PELVIS WITH IV CONTRAST CLINICAL HISTORY: Epigastric abdominal pain. Right-sided abdominal/flank pain. COMPARISON STUDY: Abdominal CT dated 01/25/2021 TECHNIQUE: Following the IV administration of 91 cc of Optiray 320, CT scan of the abdomen and pelvis is performed from the lung bases to the proximal femora. Images are reviewed in the axial, sagittal, and coronal planes. IV contrast was administered without complication. A dose lowering technique was utilized adhering to the principles of ALARA. CT DOSE: 539.03 mGy.cm FINDINGS: Lung bases: The heart is normal in size and without pericardial effusion. The lung bases are clear. Liver: The contrast-enhanced liver is normal in size, contour, and attenuation. There is no intrahepatic biliary ductal dilatation. The hepatic veins and portal veins are patent. Gallbladder: Unremarkable. Spleen: Normal in size and attenuation. Pancreas: Unremarkable. Adrenal glands: Unremarkable. Kidneys: The contrast enhanced kidneys are normal in size there is a 4 mm obstructing calculus in the distal right ureter seen on image #20 and 41. This is located just above the vesicoureteral junction and causes moderate right hydroureteronephrosis. There is heterogeneously diminished enhancement of the right kidney as compared to the left. No additional renal calculi are clearly identified on this contrast-enhanced examination. There is no left-sided hydronephrosis. A subcentimeter cortical hypodensity arising from the right upper pole likely represents a cyst but is too small for definitive characterization. Renal sinus cysts are noted on the left. Abdominal vasculature: The abdominal aorta is normal in course and caliber noting moderate atherosclerotic calcification. Bowel: The small bowel and colon are normal in course and caliber. The appendix is well-visualized and normal. Peritoneum: There is no intraperitoneal free air or abdominal ascites. There is a fat-containing umbilical hernia. Lymphadenopathy: None. Pelvic viscera: The bladder, prostate, and seminal vesicles are normal as visualized. Skeletal structures: There is moderate lumbosacral spondylosis. No lytic or blastic lesions are seen. IMPRESSION: 1. There is a 4 mm obstructing distal right ureteral calculus. This causes moderate right hydroureteronephrosis. 2. No additional renal calculi are clearly identified on this contrast-enhanced examination. 3. Heterogeneously diminished enhancement of the right kidney is likely related to obstruction/hydronephrosis. Correlate with clinical findings and urinalysis for evidence of superimposed urinary tract infection. 4. Additional findings as above. PG Care Time/CCT Total # of Minutes Spent Total Time Spent with Patient: Total time spent is greater than 50% in coordination of care (as documented) at patient's floor/unit and/or counseling patient: Coding Level of Care Code 83327 Initial Inpt Care Lvl 2 Diagnoses Calculus of distal right ureter N20.1 Hydronephrosis N13.30
--- NOTE | 2022-02-12 14:40 | Ultrasound Report ---
ULTRASOUND KIDNEYS AND BLADDER CLINICAL HISTORY: Right-sided hydronephrosis. COMPARISON STUDY: Renal ultrasound dated 02/09/2022. TECHNIQUE: Real-time, grayscale, and color flow sonography of the kidneys and bladder is performed. I mages are reviewed in the transverse and longitudinal planes. FINDINGS: Kidneys: The kidneys demonstrate mild cortical atrophy. Echotexture is normal. The right kidney measu res 10.7 x 5.6 x 6.3 cm and the left kidney measures 1.8 x 6.0 x 6.9 cm. There is no hydronephrosis. Suspect a small nonobstructing left renal calculus. A subcentimeter cyst is noted on the right. Ther e is no sonographic evidence of contour deforming renal mass lesion. No perinephric fluid is identifi ed. Bladder: The bladder is normal in appearance. Bilateral ureteral jets were seen. IMPRESSION: 1. The kidneys demonstrate mild cortical atrophy and are without hydronephrosis. 2. Suspect small nonobstructing left renal calculi. 3. The bladder is normal as visualized. ACT 112: Negative or not required by law. Electronically signed by: Ba Galan M.D. 02/12/2022 2:38 PM
[2022-02-12 15:06] VITALS: PULSE 67
[2022-02-12 15:26] VITALS: TEMP 97.9; O2SAT 96
--- NOTE | 2022-02-12 17:36 | Discharge Summary ---
Date of Service February 12, 2022 Admission HPI Per Admitting Provider Farhat Rueda is a pleasant 66yo male with history of CAD s/p NSTEMI 02/03/22 s/p cardiac catheterization which revealed multivessel CAD, 100% occlusion of ostial OM2 s/p ALISON x 1 to OM2. Patient on DAPT presently with ASA and Brillinta as well as Metoprolol, Lisinopril and Crestor. He has been doing well and denies any further chest pain, palpitations, edema, orthopnea. He presents today with right flank pain that started 02/09/22 at appx 18:00. Pain is severe, 10/10, radiating from back to right flank into the right testicle. He has associated nausea with vomiting. Denies fever, chills, dysuria. He has had a chronic cough for the last two weeks, has tested NEGATIVE for Covid on several occasions. In the ER, afebrile, HD stable, NAD. ER Course: ASA 324mg, Morphine, Zofran, NSS Principal Diagnosis Kidney stone Demand ischemia Discharge Exam Constitutional WD/WN, vitals as above Eyes EOM intact bilaterally; no conjunctival abnormality ENMT external ear and nose normal, oropharynx normal Neck trachea midline, no thyromegaly normal visual inspection Respiratory normal respiratory effort, lungs clear to auscultation no respiratory distress Cardiovascular RRR, no murmur, no edema Gastrointestinal (Abdomen) Inspection/Auscultation: abdomen normal to inspection; abdomen not distended Musculoskeletal no cyanosis or clubbing, extremities motor strength 5/5 Skin no rashes, warm and dry Neurologic moves all extremities and awake Psychiatric Orientation: alert, oriented to person and cooperative Discharge Data Allergies Allergy/AdvReac Type Severity Reaction Status Date / Time No Known Allergies Allergy Verified 02/03/22 02:38 Consultations 02/09/22 23:12 ED Decision to Admit Stat 02/12/22 10:55 Consult Urology Routine Ordered Studies 02/09/22 19:55 CT abd pelvis IV con only Urgent 02/12/22 10:55 US renal/blad retro comp Routine Hospital Course (1) Renal colic on right side: Patient with right sided obstructing nephrolithiasis with hydroureter and hydronephrosis. No infection or bacteriuria on UA. Stone is 3.3 x 2.8mm and located in the distal ureter. Will hopefully pass with supportive care. -Pain control with morphine PRN -Nausea control with Zofran PRN -Colace, Miralax PRN -Flomax x 0.4mg -Strain urine -IVF - Stone moving slightly. Seen by urology with plan for conservative management. Flomax and pain control given on discharge. (2) CAD (coronary artery disease): Patient with CAD s/p NSTEMI on 02/03/22. He had a cardiac catheterization which revealed multivessel disease, 100% occlusion of ostial OM2 s/p ALISON x 1. He is on DAPT with ASA and Brillinta as well as Metoprolol, Lisinopril and Crestor. He is adherent to his medications and has not missed any of his antiplatelet agents. - Recent intervention, mild renal dysfunction may explain elevation of troponin -Trend troponin 600-600-300 -Continue ASA, Brillinta and Metoprolol -Continue Crestor (3) DAYANNA (acute kidney injury): Patient with mild stage-I DAYANNA (Cr of 0.92 --> 1.49). Recent catheterization, initiation of Lisinopril and hospital stay could be contributing factors. He reports urinating without difficulty. -IVF with LR at 125mL/hr hold Lisinopril -Avoid nephrotoxic agents -Renal dosing where needed -> Back to baseline on 02/11. U/s of kidneys on 02/12 without hydronephrosis. (4) Hyperlipidemia: Chronic. Stable -Continue Crestor (5) Anxiety: Chronic. Stable -Continue Fluvoxamine 100mg po BID (6) Polymyalgia rheumatica: Chronic. Stable. Patient is on prednisone daily -Continue, no stress dose at this time Total Time Total Time Spent Total Time Spent (In Minutes): 35 Discharge Plan Discharge Items Patient Disposition: Home - Self-Care Reason For Visit: RENAL STONE, ELEVATED TROPONIN Discharge Diagnosis: Kidney stone, elevated troponin Activity: Resume your previous activity Non-emergency contact: Primary Care Provider and Urologist Call non-emergency contact if: your symptoms worsen Follow-up/Referrals: Murtaza Sharma MD [Primary Care Provider] - Christian Woody MD [Physician] - (Please follow up with the Urology office in 2 weeks or when they call you.) Diet: Heart Healthy Ambulatory Orders: XR KUB/Abdomen 1 view (Routine) Timeframe: 2 Weeks Location: Determined by Patient Ordered By: Marisol De Jesus Attending Provider Instructions: Mr. Rueda, You were admitted to the hospital with a kidney stone which caused stress on your heart and caused you to have an elevated cardiac enzyme. Fortunately, this resolved on its own without any intervention. Your kidney stone seems to be slowly passing on its own which would be great because it would allow you to not need any procedure for its removal. Please take the medications and follow up with the urology team in 2 weeks. For pain, try Tylenol first, and if that does not relieve the pain, you can use the tramadol as a back-up. Take this as sparingly as possible. Neal Seat Installer Provider Instructions: You will be called to set up a follow-up appointment with: [facility] [address] [place] [address] Please complete a KUB (x-ray) prior to appointment. Pending Studies at Discharge: No Stand-Alone Forms: My [facility], Smoking Cessation Medications and DC Order Prescriptions: New tamsulosin 0.4 mg Capsule 0.4 mg PO HS Qty: 30 0RF tramadol 100 mg tablet 100 mg PO TID PRN (Reason: pain) Qty: 20 0RF Continued fluvoxamine 100 mg tablet 100 mg PO BID Qty: 180 1RF acetaminophen [Tylenol Extra Strength] 500 mg Tablet 1,000 mg PO Q6H PRN (Reason: Pain) prednisone 20 mg PO 1XD lisinopril [Zestril] 5 mg Tablet 5 mg PO QAM 30 Days Qty: 30 0RF Brilinta 90 mg Tablet 90 mg PO BID 60 Days Qty: 120 0RF metoprolol succinate 50 mg tablet extended release 24 hr 50 mg PO DAILY Qty: 30 0RF aspirin 81 mg Tablet,Delayed Release (Dr/Ec) 81 mg PO QAM 30 Days Qty: 30 0RF rosuvastatin [Crestor] 20 mg Tablet 20 mg PO QAM 30 Days Qty: 30 0RF Discontinued diclofenac sodium 75 mg tablet,delayed release (DR/EC) 75 mg PO BID Discharge Orders: Discharge Order (Routine); Ordered 02/12/22 Ordered By: Sanchez Simon Admission Data Admit Date/Time: 02/09/22 23:56 Attending Provider: Simon,Sanchez J. Admit Provider: Delfina Dodge Primary Care Provider: Murtaza Sharma Other Providers: Delfina Dodge ; Christian Woody Other Interventions: Discharge Summary Assessment (RN) Last Done: 02/12/22 17:06 Coding Level of Care Code D/C DAY MANAGEMENT >30 MINS Diagnoses Renal colic on right side N23 CAD (coronary artery disease) I25.10 DAYANNA (acute kidney injury) N17.9 Hyperlipidemia E78.00; E78.0 Hyperlipidemia type: pure hypercholesterolemia Anxiety F41.9 Polymyalgia rheumatica M35.3
[2022-02-12 20:57] VITALS: BP 111/70
== END 2022-02-12 18:19 | disposition home or self-care (01) | DRG 694 ==
LOC: ED 19:30 → SUATTDRO 23:56 → EDINP 23:56 → 2N 02-10 02:05